=== PATIENT | male | born 1960 | race African-American/Black ===

== ENCOUNTER 2020-10-15 10:42 | Inpatient (IN) | payer MEDICARE, OTHER ==
[~2020-10-15] VITALS: Ht 170.2 cm; Wt 96.2 kg
[2020-10-15] MEDS ORDERED: SODIUM CHLORIDE 0.9% 1000ML 1,000 ML IV STA (10:48)
[2020-10-15] MEDS ORDERED: ACETAMINOPHEN 325 MG TAB PO ONE (11:00)
[2020-10-15 11:10] LABS: BASOPHILS # (AUTO) 0.1 (0.0-0.1); BASOPHILS % 0.4 % (0.0-1.0); EOSINOPHILS # (AUTO) 0.1 (0.0-0.4); EOSINOPHILS % 0.3 % (0.0-6.0); HEMATOCRIT 22.5 % (38.2-49.6); LYMPHOCYTES # (AUTO) 0.9 (1.0-3.2); MEAN CORPUSCULAR HEMOGLOBIN 25.1 pg (28-32); MEAN CORPUSCULAR HGB CONC 29.8 g/dL (31-35); MEAN CORPUSCULAR VOLUME 84.3 fL (81-99); MONOCYTES # (AUTO) 1.7 (0.2-0.8); MONOCYTES % 7.9 % (4.4-11.3); NEUTROPHILS # (AUTO) 18.7 (2.1-6.9); NEUTROPHILS % 86.6 % (38.7-80.0); PLATELET COUNT 471 x10e3/uL (140-360); RED BLOOD COUNT 2.67 x10e6/uL (4.3-5.7); RED CELL DISTRIBUTION WIDTH 19.6 % (11.7-14.4)
[2020-10-15 11:13] LABS: HEMOGLOBIN 6.7 g/dL (14.0-18.0)
[2020-10-15] MEDS ORDERED: SODIUM CHLORIDE 0.9% 250ML 250 ML IV ONE (11:15)
[2020-10-15 11:25] LABS: ALANINE AMINOTRANSFERASE 175 IU/L (0-55); ALBUMIN 1.8 g/dL (3.5-5.0); ALBUMIN/GLOBULIN RATIO 0.4 (0.8-2.0); ALKALINE PHOSPHATASE 280 IU/L (40-150); ANION GAP 13.3 mmol/L (8-16); BLOOD UREA NITROGEN 18 mg/dL (7-26); BUN/CREATININE RATIO 22 (6-25); CALCIUM 8.2 mg/dL (8.4-10.2); CARBON DIOXIDE 23 mmol/L (22-29); CHLORIDE 105 mmol/L (98-107); CREATININE, SERUM 0.82 mg/dL (0.72-1.25); EST GLOMERULAR FILTRATION RATE > 60 ML/MIN (60-); GLUCOSE 194 mg/dL (74-118); POTASSIUM 4.3 mmol/L (3.5-5.1); SODIUM 137 mmol/L (136-145)
[2020-10-15] MEDS ORDERED: MORPHINE SULFATE INJ 2 MG/ML SYR IV PRN (11:45)
[2020-10-15] MEDS: PIPER-TAZ 3.375 GM 50 ML IV SCH ×3 (12:02→18:49)
[2020-10-15 12:25] LABS: CREATINE KINASE 224 IU/L (30-200)
[2020-10-15 13:30] VITALS: BP_SYST 113; BP_SYST 114; BP_DIAS 64; BP_DIAS 76
[2020-10-15] MEDS ORDERED: CETIRIZINE HCL5 MG PO (13:32)
[2020-10-15] MEDS ORDERED: AMLODIPINE BESYL5 MG PO (13:32)
[2020-10-15] MEDS ORDERED: SENNA LAX8.6 MG PO (13:32)
[2020-10-15] MEDS ORDERED: PERCOCET 10-321 EACH PO (13:32)
[2020-10-15] MEDS ORDERED: NORCO 10-325 T1 EACH PO (13:32)
[2020-10-15] MEDS ORDERED: BACLOFEN10 MG PO (13:32)
[2020-10-15] MEDS ORDERED: ZINC SULFATE220 MG PO (13:32)
[2020-10-15] MEDS ORDERED: GABAPENTIN300 MG PO (13:32)
[2020-10-15] MEDS ORDERED: DOCUSATE SODIU100 MG PO (13:32)
[2020-10-15] MEDS ORDERED: ALLOPURINOL300 MG PO (13:32)
[2020-10-15 13:37] VITALS: BP 118/63
[2020-10-15] MEDS ORDERED: DEXTROSE 50% SYRINGE 50 ML IV PRN (13:45)
[2020-10-15] MEDS: SODIUM CHLORIDE 0.9% 1000ML 1,000 ML IV SCH ×2 (15:15→19:45)
[2020-10-15 16:03] VITALS: BP 98/61
[2020-10-15] MEDS ORDERED: PNEUMOCOCCAL VACCINE POLYVALENT 23 MCG/0.5 ML VIAL IM SCH (16:30)
[2020-10-15] MEDS: INSULIN REGULAR, HUMAN 100 UNIT/1 ML 3ML VIAL SQ SCH ×2 (16:30→21:00)
[2020-10-15] MEDS ORDERED: IOPAMIDOL 370 MG/ML 200 ML INFUS..BTL INJ ONE (18:03)
[2020-10-15] MEDS ORDERED: SODIUM CHLORIDE 0.9% 50ML 50 ML ONE (18:03)
[2020-10-15] MEDS: ONDANSETRON HCL INJ 2MG/ML 2ML 2 MG/ML VIAL IV PRN (18:25)
[2020-10-15] MEDS: MORPHINE SULFATE INJ 4 MG/ML INJ 1ML IV PRN (18:25)
[2020-10-15 19:30] VITALS: BP 121/60
[2020-10-15] MEDS ORDERED: SODIUM CHLORIDE 0.9% 250ML 250 ML ONE (20:47)
[2020-10-15 21:45] VITALS: BP 121/60
[2020-10-16] VITALS (8 sets, daily range): BP systolic 102–121; BP diastolic 53–67
[2020-10-16] MEDS: PIPER-TAZ 3.375 GM 50 ML IV SCH ×4 (01:13→17:03)
[2020-10-16] MEDS: SODIUM CHLORIDE 0.9% 1000ML 1,000 ML IV SCH ×3 (03:45→21:18)
[2020-10-16 07:17] LABS: BASOPHILS # (AUTO) 0.1 (0.0-0.1); BASOPHILS % 0.4 % (0.0-1.0); EOSINOPHILS # (AUTO) 0.1 (0.0-0.4); HEMATOCRIT 25.8 % (38.2-49.6); HEMOGLOBIN 7.8 g/dL (14.0-18.0); LYMPHOCYTES # (AUTO) 0.9 (1.0-3.2); LYMPHOCYTES % 7.5 % (18.0-39.1); MEAN CORPUSCULAR HEMOGLOBIN 25.2 pg (28-32); MEAN CORPUSCULAR HGB CONC 30.2 g/dL (31-35); MEAN CORPUSCULAR VOLUME 83.5 fL (81-99); MONOCYTES % 8.7 % (4.4-11.3); NEUTROPHILS # (AUTO) 9.6 (2.1-6.9); PLATELET COUNT 386 x10e3/uL (140-360); RED BLOOD COUNT 3.09 x10e6/uL (4.3-5.7); RED CELL DISTRIBUTION WIDTH 18.7 % (11.7-14.4)
[2020-10-16] MEDS: INSULIN REGULAR, HUMAN 100 UNIT/1 ML 3ML VIAL SQ SCH ×3 (07:30→16:30)
[2020-10-16 07:43] LABS: ALANINE AMINOTRANSFERASE 142 IU/L (0-55); ALBUMIN 1.7 g/dL (3.5-5.0); ALBUMIN/GLOBULIN RATIO 0.4 (0.8-2.0); ALKALINE PHOSPHATASE 237 IU/L (40-150); ANION GAP 13.9 mmol/L (8-16); BLOOD UREA NITROGEN 15 mg/dL (7-26); BUN/CREATININE RATIO 21 (6-25); CALCIUM 7.8 mg/dL (8.4-10.2); CARBON DIOXIDE 22 mmol/L (22-29); CHLORIDE 108 mmol/L (98-107); CREATININE, SERUM 0.73 mg/dL (0.72-1.25); EST GLOMERULAR FILTRATION RATE > 60 ML/MIN (60-); GLUCOSE 85 mg/dL (74-118); POTASSIUM 3.9 mmol/L (3.5-5.1); SODIUM 140 mmol/L (136-145)
[2020-10-16 07:48] LABS: CALCIUM IONIZED 1.2 mmol/L (1.09-1.30)
[2020-10-16 07:50] LABS: CREATINE KINASE MB 1.2 ng/mL (0-5.0)
[2020-10-16 07:59] LABS: MAGNESIUM 1.8 MG/DL (1.3-2.1)
[2020-10-16] MEDS: POLYETHYLENE GLYCOL 3350 17 GM PACK PO SCH (08:37)
[2020-10-16] MEDS: MORPHINE SULFATE INJ 4 MG/ML INJ 1ML IV PRN (08:37)
[2020-10-16] MEDS: DOCUSATE SODIUM 100 MG CAP PO SCH (08:37)
[2020-10-16] MEDS: ONDANSETRON HCL INJ 2MG/ML 2ML 2 MG/ML VIAL IV PRN (08:37)
[2020-10-16] MEDS ORDERED: MAGNESIUM OXIDE 400 MG TAB PO ONE (10:00)
[2020-10-16 12:31] LABS: CREATINE KINASE 153 IU/L (30-200)
[2020-10-17] VITALS (7 sets, daily range): BP systolic 117–140; BP diastolic 61–84
[2020-10-17] MEDS: MORPHINE SULFATE INJ 4 MG/ML INJ 1ML IV PRN ×2 (00:24→09:45)
[2020-10-17] MEDS: PIPER-TAZ 3.375 GM 50 ML IV SCH ×5 (00:24→23:53)
[2020-10-17] MEDS: INSULIN REGULAR, HUMAN 100 UNIT/1 ML 3ML VIAL SQ SCH ×5 (00:58→20:47)
[2020-10-17 06:00] LABS: CALCIUM IONIZED 1.2 mmol/L (1.09-1.30)
[2020-10-17 06:02] LABS: BASOPHILS # (AUTO) 0.1 (0.0-0.1); BASOPHILS % 0.5 % (0.0-1.0); EOSINOPHILS # (AUTO) 0.2 (0.0-0.4); EOSINOPHILS % 1.6 % (0.0-6.0); HEMATOCRIT 24.9 % (38.2-49.6); HEMOGLOBIN 7.7 g/dL (14.0-18.0); LYMPHOCYTES # (AUTO) 0.9 (1.0-3.2); LYMPHOCYTES % 8.8 % (18.0-39.1); MEAN CORPUSCULAR HEMOGLOBIN 25.9 pg (28-32); MEAN CORPUSCULAR HGB CONC 30.9 g/dL (31-35); MEAN CORPUSCULAR VOLUME 83.8 fL (81-99); MONOCYTES # (AUTO) 0.7 (0.2-0.8); MONOCYTES % 7.1 % (4.4-11.3); NEUTROPHILS # (AUTO) 8.2 (2.1-6.9); NEUTROPHILS % 81.4 % (38.7-80.0); PLATELET COUNT 450 x10e3/uL (140-360); RED BLOOD COUNT 2.97 x10e6/uL (4.3-5.7); RED CELL DISTRIBUTION WIDTH 18.4 % (11.7-14.4)
[2020-10-17 06:28] LABS: ALANINE AMINOTRANSFERASE 101 IU/L (0-55); ALBUMIN 1.7 g/dL (3.5-5.0); ALBUMIN/GLOBULIN RATIO 0.4 (0.8-2.0); ALKALINE PHOSPHATASE 236 IU/L (40-150); ANION GAP 12.8 mmol/L (8-16); BLOOD UREA NITROGEN 11 mg/dL (7-26); BUN/CREATININE RATIO 14 (6-25); CALCIUM 7.9 mg/dL (8.4-10.2); CARBON DIOXIDE 23 mmol/L (22-29); CHLORIDE 108 mmol/L (98-107); CREATININE, SERUM 0.76 mg/dL (0.72-1.25); EST GLOMERULAR FILTRATION RATE > 60 ML/MIN (60-); GLUCOSE 81 mg/dL (74-118); MAGNESIUM 1.9 MG/DL (1.3-2.1); POTASSIUM 3.8 mmol/L (3.5-5.1); SODIUM 140 mmol/L (136-145)
[2020-10-17] MEDS: POLYETHYLENE GLYCOL 3350 17 GM PACK PO SCH (09:00)
[2020-10-17] MEDS: DOCUSATE SODIUM 100 MG CAP PO SCH (09:30)
[2020-10-17] MEDS: ONDANSETRON HCL INJ 2MG/ML 2ML 2 MG/ML VIAL IV PRN (09:45)
[2020-10-17] MEDS: SODIUM CHLORIDE 0.9% 1000ML 1,000 ML IV SCH ×2 (10:13→23:53)
[2020-10-18] VITALS (7 sets, daily range): BP systolic 117–141; BP diastolic 66–83
[2020-10-18 05:02] LABS: CLARITY,URINE CLEAR (CLEAR); COLOR,URINE YELLOW (YELLOW)
[2020-10-18 05:03] LABS: BACTERIA,URINE MODERATE /HPF; EPITHELIAL CELLS,URINE FEW /LPF; KETONES,URINE NEGATIVE (NEGATIVE); LEUKOCYTE ESTERASE ,URINE SMALL (NEGATIVE); NITRITE,URINE NEGATIVE (NEGATIVE); PROTEIN,URINE DIPSTICK NEGATIVE (NEGATIVE); RBC,URINE >50 /HPF (0-5); URINE UROBILINOGEN 0.2 mg/dL (0.2 - 1); WBC,URINE (MAN) >50 /HPF (0-5)
[2020-10-18] MEDS: PIPER-TAZ 3.375 GM 50 ML IV SCH ×3 (06:00→19:00)
[2020-10-18 06:48] LABS: BASOPHILS # (AUTO) 0.1 (0.0-0.1); BASOPHILS % 0.5 % (0.0-1.0); EOSINOPHILS # (AUTO) 0.1 (0.0-0.4); EOSINOPHILS % 0.7 % (0.0-6.0); HEMOGLOBIN 8.5 g/dL (14.0-18.0); LYMPHOCYTES # (AUTO) 0.6 (1.0-3.2); LYMPHOCYTES % 6.8 % (18.0-39.1); MEAN CORPUSCULAR HEMOGLOBIN 25.4 pg (28-32); MEAN CORPUSCULAR HGB CONC 30.4 g/dL (31-35); MEAN CORPUSCULAR VOLUME 83.6 fL (81-99); MONOCYTES # (AUTO) 0.6 (0.2-0.8); MONOCYTES % 6.5 % (4.4-11.3); NEUTROPHILS % 85.1 % (38.7-80.0); PLATELET COUNT 476 x10e3/uL (140-360); RED BLOOD COUNT 3.35 x10e6/uL (4.3-5.7); RED CELL DISTRIBUTION WIDTH 17.8 % (11.7-14.4)
[2020-10-18 06:50] LABS: CALCIUM IONIZED 1.2 mmol/L (1.09-1.30)
[2020-10-18] MEDS: INSULIN REGULAR, HUMAN 100 UNIT/1 ML 3ML VIAL SQ SCH ×4 (07:30→20:50)
[2020-10-18 07:37] LABS: ALANINE AMINOTRANSFERASE 82 IU/L (0-55); ALBUMIN/GLOBULIN RATIO 0.5 (0.8-2.0); ALKALINE PHOSPHATASE 229 IU/L (40-150); ANION GAP 12.7 mmol/L (8-16); BLOOD UREA NITROGEN 8 mg/dL (7-26); BUN/CREATININE RATIO 11 (6-25); CALCIUM 8.2 mg/dL (8.4-10.2); CARBON DIOXIDE 22 mmol/L (22-29); CHLORIDE 106 mmol/L (98-107); EST GLOMERULAR FILTRATION RATE > 60 ML/MIN (60-); GLUCOSE 78 mg/dL (74-118); MAGNESIUM 1.9 MG/DL (1.3-2.1); POTASSIUM 3.7 mmol/L (3.5-5.1); SODIUM 137 mmol/L (136-145)
[2020-10-18] MEDS: POLYETHYLENE GLYCOL 3350 17 GM PACK PO SCH (10:02)
[2020-10-18] MEDS: DOCUSATE SODIUM 100 MG CAP PO SCH (10:02)
[2020-10-18] MEDS ORDERED: DOCUSATE SODIUM 100 MG CAP PO PRN (21:15)
[2020-10-18] MEDS ORDERED: POLYETHYLENE GLYCOL 3350 17 GM PACK PO PRN (21:15)
[2020-10-18] MEDS: SODIUM CHLORIDE 0.9% 1000ML 1,000 ML IV SCH (21:57)
[2020-10-18] MEDS ORDERED: GABAPENTIN 300 MG CAP PO SCH (22:00)
[2020-10-18] MEDS: BACLOFEN 10 MG TAB PO SCH (22:08)
[2020-10-18] MEDS: GABAPENTIN 300 MG CAP PO SCH ×2 (22:08→22:09)
[2020-10-19] VITALS (9 sets, daily range): BP systolic 95–118; BP diastolic 58–83
[2020-10-19] MEDS: PIPER-TAZ 3.375 GM 50 ML IV SCH ×5 (01:04→23:18)
[2020-10-19] MEDS: GABAPENTIN 300 MG CAP PO SCH ×3 (05:14→21:30)
[2020-10-19 06:24] LABS: BASOPHILS % 0.2 % (0.0-1.0); EOSINOPHILS # (AUTO) 0.1 (0.0-0.4); HEMATOCRIT 26.9 % (38.2-49.6); HEMOGLOBIN 8.3 g/dL (14.0-18.0); LYMPHOCYTES # (AUTO) 0.9 (1.0-3.2); LYMPHOCYTES % 9.7 % (18.0-39.1); MEAN CORPUSCULAR HEMOGLOBIN 25.9 pg (28-32); MEAN CORPUSCULAR HGB CONC 30.9 g/dL (31-35); MEAN CORPUSCULAR VOLUME 83.8 fL (81-99); MONOCYTES # (AUTO) 0.7 (0.2-0.8); MONOCYTES % 7.6 % (4.4-11.3); NEUTROPHILS # (AUTO) 7.3 (2.1-6.9); NEUTROPHILS % 80.9 % (38.7-80.0); PLATELET COUNT 522 x10e3/uL (140-360); RED BLOOD COUNT 3.21 x10e6/uL (4.3-5.7); RED CELL DISTRIBUTION WIDTH 17.8 % (11.7-14.4)
[2020-10-19 06:41] LABS: CALCIUM IONIZED 1.2 mmol/L (1.09-1.30)
[2020-10-19 06:44] LABS: ALANINE AMINOTRANSFERASE 54 IU/L (0-55); ALBUMIN 1.9 g/dL (3.5-5.0); ALBUMIN/GLOBULIN RATIO 0.5 (0.8-2.0); ALKALINE PHOSPHATASE 173 IU/L (40-150); ANION GAP 12.4 mmol/L (8-16); BLOOD UREA NITROGEN 8 mg/dL (7-26); BUN/CREATININE RATIO 11 (6-25); CALCIUM 7.7 mg/dL (8.4-10.2); CARBON DIOXIDE 23 mmol/L (22-29); CHLORIDE 108 mmol/L (98-107); CREATININE, SERUM 0.72 mg/dL (0.72-1.25); EST GLOMERULAR FILTRATION RATE > 60 ML/MIN (60-); GLUCOSE 90 mg/dL (74-118); MAGNESIUM 1.9 MG/DL (1.3-2.1); POTASSIUM 3.4 mmol/L (3.5-5.1); SODIUM 140 mmol/L (136-145)
[2020-10-19] MEDS: INSULIN REGULAR, HUMAN 100 UNIT/1 ML 3ML VIAL SQ SCH ×4 (07:30→20:11)
[2020-10-19] MEDS ORDERED: BACLOFEN 10 MG TAB PO SCH (09:00)
[2020-10-19] MEDS: BACLOFEN 10 MG TAB PO SCH ×3 (09:32→20:17)
[2020-10-19] MEDS ORDERED: POTASSIUM CHLORIDE 20 MEQ TAB CR PO ONE (09:38)
[2020-10-19] MEDS ORDERED: CALCIUM GLUCONATE 10% INJ 4.65 MEQ in SODIUM CHLORIDE 0.9% 50ML 50 ML IV ONE (11:00)
[2020-10-19] MEDS: SODIUM CHLORIDE 0.9% 1000ML 1,000 ML IV SCH (11:38)
[2020-10-20] VITALS (8 sets, daily range): BP systolic 94–111; BP diastolic 52–67
[2020-10-20] MEDS: SODIUM CHLORIDE 0.9% 1000ML 1,000 ML IV SCH ×2 (04:15→13:15)
[2020-10-20] MEDS: ONDANSETRON HCL INJ 2MG/ML 2ML 2 MG/ML VIAL IV PRN (04:25)
[2020-10-20] MEDS: MORPHINE SULFATE INJ 4 MG/ML INJ 1ML IV PRN ×2 (04:25→22:32)
[2020-10-20] MEDS: PIPER-TAZ 3.375 GM 50 ML IV SCH ×3 (05:01→18:03)
[2020-10-20] MEDS: GABAPENTIN 300 MG CAP PO SCH ×3 (05:02→22:31)
[2020-10-20 07:15] LABS: BASOPHILS % 0.4 % (0.0-1.0); EOSINOPHILS # (AUTO) 0.2 (0.0-0.4); EOSINOPHILS % 2.5 % (0.0-6.0); HEMATOCRIT 24.7 % (38.2-49.6); HEMOGLOBIN 7.3 g/dL (14.0-18.0); LYMPHOCYTES % 13.6 % (18.0-39.1); MEAN CORPUSCULAR HEMOGLOBIN 25.6 pg (28-32); MEAN CORPUSCULAR HGB CONC 29.6 g/dL (31-35); MEAN CORPUSCULAR VOLUME 86.7 fL (81-99); MONOCYTES # (AUTO) 0.7 (0.2-0.8); MONOCYTES % 9.1 % (4.4-11.3); NEUTROPHILS # (AUTO) 5.4 (2.1-6.9); PLATELET COUNT 482 x10e3/uL (140-360); RED BLOOD COUNT 2.85 x10e6/uL (4.3-5.7); RED CELL DISTRIBUTION WIDTH 18.3 % (11.7-14.4)
[2020-10-20 07:27] LABS: ALANINE AMINOTRANSFERASE 38 IU/L (0-55); ALBUMIN 1.9 g/dL (3.5-5.0); ALBUMIN/GLOBULIN RATIO 0.5 (0.8-2.0); ALKALINE PHOSPHATASE 122 IU/L (40-150); ANION GAP 9.7 mmol/L (8-16); BLOOD UREA NITROGEN 7 mg/dL (7-26); BUN/CREATININE RATIO 10 (6-25); CALCIUM 7.3 mg/dL (8.4-10.2); CARBON DIOXIDE 22 mmol/L (22-29); CHLORIDE 112 mmol/L (98-107); CREATININE, SERUM 0.68 mg/dL (0.72-1.25); EST GLOMERULAR FILTRATION RATE > 60 ML/MIN (60-); GLUCOSE 89 mg/dL (74-118); MAGNESIUM 1.9 MG/DL (1.3-2.1); POTASSIUM 3.7 mmol/L (3.5-5.1); SODIUM 140 mmol/L (136-145)
[2020-10-20] MEDS: INSULIN REGULAR, HUMAN 100 UNIT/1 ML 3ML VIAL SQ SCH ×4 (07:30→21:00)
[2020-10-20 07:35] LABS: CALCIUM IONIZED 1.1 mmol/L (1.09-1.30)
[2020-10-20 08:32] LABS: HYPOCHROMASIA SLIGHT
[2020-10-20 08:33] LABS: ANISOCYTOSIS SLIGHT; PLATELET ESTIMATE ADEQUATE; PLATELET MORPHOLOGY COMMENT NORMAL; RBC MORPHOLOGY COMMENT NORMAL
[2020-10-20] MEDS: BACLOFEN 10 MG TAB PO SCH ×3 (09:00→21:59)
[2020-10-20] MEDS ORDERED: SEVOFLURANE INHAL SOLN 250 ML PEN BTL ONE (12:24)
[2020-10-20] MEDS ORDERED: PROPOFOL IV EMULSION 10 MG/ML 20 ML VIAL ONE (12:24)
[2020-10-20] MEDS ORDERED: ONDANSETRON HCL INJ 2MG/ML 2ML 2 MG/ML VIAL ONE (12:24)
[2020-10-20] MEDS ORDERED: LIDOCAINE HCL 2% LOCAL INJ 5 ML SDV VIAL INJ ONE (12:24)
[2020-10-20] MEDS ORDERED: ONDANSETRON HCL 4 MG ORAL DISINTEGRATING TAB PO PRN (15:00)
[2020-10-21] VITALS (8 sets, daily range): BP systolic 114–155; BP diastolic 54–76
[2020-10-21] MEDS: PIPER-TAZ 3.375 GM 50 ML IV SCH ×4 (00:45→17:14)
[2020-10-21] MEDS: GABAPENTIN 300 MG CAP PO SCH ×3 (06:00→21:49)
[2020-10-21] MEDS: SODIUM CHLORIDE 0.9% 1000ML 1,000 ML IV SCH ×2 (06:25→15:00)
[2020-10-21 06:26] LABS: BASOPHILS # (AUTO) 0.1 (0.0-0.1); BASOPHILS % 0.7 % (0.0-1.0); EOSINOPHILS # (AUTO) 0.2 (0.0-0.4); EOSINOPHILS % 3.5 % (0.0-6.0); HEMATOCRIT 24.8 % (38.2-49.6); HEMOGLOBIN 7.5 g/dL (14.0-18.0); LYMPHOCYTES # (AUTO) 1.1 (1.0-3.2); LYMPHOCYTES % 15.6 % (18.0-39.1); MEAN CORPUSCULAR HEMOGLOBIN 26.1 pg (28-32); MEAN CORPUSCULAR HGB CONC 30.2 g/dL (31-35); MEAN CORPUSCULAR VOLUME 86.4 fL (81-99); MONOCYTES # (AUTO) 0.5 (0.2-0.8); MONOCYTES % 7.6 % (4.4-11.3); NEUTROPHILS # (AUTO) 4.9 (2.1-6.9); PLATELET COUNT 504 x10e3/uL (140-360); RED BLOOD COUNT 2.87 x10e6/uL (4.3-5.7); RED CELL DISTRIBUTION WIDTH 18.4 % (11.7-14.4)
[2020-10-21 06:33] LABS: CALCIUM IONIZED 1.1 mmol/L (1.09-1.30)
[2020-10-21 06:43] LABS: ALANINE AMINOTRANSFERASE 32 IU/L (0-55); ALBUMIN/GLOBULIN RATIO 0.5 (0.8-2.0); ALKALINE PHOSPHATASE 118 IU/L (40-150); ANION GAP 10.9 mmol/L (8-16); BLOOD UREA NITROGEN 9 mg/dL (7-26); BUN/CREATININE RATIO 11 (6-25); CALCIUM 7.8 mg/dL (8.4-10.2); CARBON DIOXIDE 23 mmol/L (22-29); CHLORIDE 112 mmol/L (98-107); CREATININE, SERUM 0.81 mg/dL (0.72-1.25); EST GLOMERULAR FILTRATION RATE > 60 ML/MIN (60-); GLUCOSE 76 mg/dL (74-118); MAGNESIUM 1.9 MG/DL (1.3-2.1); POTASSIUM 3.9 mmol/L (3.5-5.1); SODIUM 142 mmol/L (136-145)
[2020-10-21] MEDS: INSULIN REGULAR, HUMAN 100 UNIT/1 ML 3ML VIAL SQ SCH ×4 (07:30→21:00)
[2020-10-21] MEDS: BACLOFEN 10 MG TAB PO SCH ×3 (10:17→21:00)
[2020-10-21] MEDS: MORPHINE SULFATE INJ 4 MG/ML INJ 1ML IV PRN (18:30)
[2020-10-22] VITALS: BP 132/71
[2020-10-22] MEDS: SODIUM CHLORIDE 0.9% 1000ML 1,000 ML IV SCH (02:32)
[2020-10-22 04:00] VITALS: BP 133/61
[2020-10-22] MEDS: GABAPENTIN 300 MG CAP PO SCH (05:30)
[2020-10-22] MEDS: PIPER-TAZ 3.375 GM 50 ML IV SCH ×3 (05:30→12:49)
[2020-10-22] MEDS: INSULIN REGULAR, HUMAN 100 UNIT/1 ML 3ML VIAL SQ SCH ×2 (07:30→11:30)
[2020-10-22 07:55] VITALS: BP 125/52
[2020-10-22 08:00] VITALS: BP 125/52
[2020-10-22] MEDS: BACLOFEN 10 MG TAB PO SCH (09:21)
[2020-10-22 12:00] VITALS: BP 136/64
[2020-12-24] MEDS ORDERED: DEXTROMETHORPHAN PO (12:39)
[2020-12-24] MEDS ORDERED: ATIVAN1 MG PO (12:39)
[2020-12-24] MEDS ORDERED: VITAMIN D3250 MC1 PO (12:39)
[2020-12-24] MEDS ORDERED: MULTIVITAMINS1 EAC8 PO (12:39)
[2020-12-24] MEDS ORDERED: GUAIFENESIN PO (12:39)
[2020-12-24] MEDS ORDERED: VITAMIN D3100 GM (12:39)
[2020-12-24] MEDS ORDERED: HUMULIN N100 UNITS/ SC (12:39)
[2020-12-24] MEDS ORDERED: ACETAMINOPHEN325 M1 PO (12:39)
[2020-12-24] MEDS ORDERED: PROMOD946 ML PO (12:39)
[2020-12-24] MEDS ORDERED: HUMULIN R100 UNIT/2 INJ (12:39)
[2020-12-24] MEDS ORDERED: ARTIFICIAL TEAR15 ML OU (12:39)
== END 2020-10-22 15:34 | DRG 853 ==
LOC: ER 10:45 → ERHOLD 10:51 → MED/SURG3 13:19
PROVIDERS: ADMIT Internal Medicine; ATTEND Internal Medicine
PROC: 30233N1 Transfusion of Nonautologous Red Blood Cells into Peripheral Vein, Percutaneous Approach (ICD-10-PCS; 2020-10-15)
PROC: 0JD70ZZ Extraction of Back Subcutaneous Tissue and Fascia, Open Approach (ICD-10-PCS; principal; 2020-10-20 14:30)
DX: A41.9 Sepsis, unspecified organism (principal); L89.613 Pressure ulcer of right heel, stage 3; L89.154 Pressure ulcer of sacral region, stage 4; G82.52 Quadriplegia, C1-C4 incomplete; D62 Acute posthemorrhagic anemia; N13.2 Hydronephrosis with renal and ureteral calculous obstruction; N39.0 Urinary tract infection, site not specified; K52.1 Toxic gastroenteritis and colitis; M86.8X8 Other osteomyelitis, other site; Z66 Do not resuscitate; E66.9 Obesity, unspecified; Z20.828 Contact with and (suspected) exposure to other viral communicable diseases; E11.51 Type 2 diabetes mellitus with diabetic peripheral angiopathy without gangrene; E11.22 Type 2 diabetes mellitus with diabetic chronic kidney disease; I12.9 Hypertensive chronic kidney disease with stage 1 through stage 4 chronic kidney disease, or unspecified chronic kidney disease; N18.9 Chronic kidney disease, unspecified; Z74.01 Bed confinement status; Z93.3 Colostomy status; E78.5 Hyperlipidemia, unspecified; Z93.6 Other artificial openings of urinary tract status; N31.9 Neuromuscular dysfunction of bladder, unspecified; Q54.0 Hypospadias, balanic; N28.1 Cyst of kidney, acquired; E83.51 Hypocalcemia; T47.4X5A Adverse effect of other laxatives, initial encounter; Z68.33 Body mass index [BMI] 33.0-33.9, adult; Z79.4 Long term (current) use of insulin; E11.69 Type 2 diabetes mellitus with other specified complication
CPT/HCPCS: 36415; 71045; 74018; 74177; 80053; 81001; 82270; 82550; 82553; 82948; 83605; 83735; 84100; 84484; 85025; 86850; 86900; 86920; 87040; 87086; 93005; 99251; 99284; J0610; J1817; J2001; J2270; J2405; J2543; J7030; J7050; J7799; P9016; Q9967; U0002

== ENCOUNTER 2020-12-18 12:19 | Emergency (ER) | payer MEDICARE, OTHER ==
[~2020-12-18] VITALS: Ht 165.1 cm; Wt 90.7 kg
[~2020-12-18 12:19] MED LIST: ALLOPURINOL300 MG PO; AMLODIPINE BESYL5 MG PO; BACLOFEN10 MG PO; CETIRIZINE HCL5 MG PO; DOCUSATE SODIU100 MG PO; GABAPENTIN300 MG PO; NORCO 10-325 T1 EACH PO; PERCOCET 10-321 EACH PO; SENNA LAX8.6 MG PO; ZINC SULFATE220 MG PO
[2020-12-18 13:38] LABS: BASOPHILS % 0.4 % (0.0-1.0); EOSINOPHILS # (AUTO) 0.2 (0.0-0.4); EOSINOPHILS % 2.5 % (0.0-6.0); HEMATOCRIT 27.9 % (38.2-49.6); HEMOGLOBIN 8.3 g/dL (14.0-18.0); LYMPHOCYTES # (AUTO) 1.1 (1.0-3.2); LYMPHOCYTES % 13.8 % (18.0-39.1); MEAN CORPUSCULAR HEMOGLOBIN 26.2 pg (28-32); MEAN CORPUSCULAR HGB CONC 29.7 g/dL (31-35); MONOCYTES # (AUTO) 0.8 (0.2-0.8); MONOCYTES % 10.8 % (4.4-11.3); NEUTROPHILS # (AUTO) 5.5 (2.1-6.9); NEUTROPHILS % 72.4 % (38.7-80.0); PLATELET COUNT 390 x10e3/uL (140-360); RED BLOOD COUNT 3.17 x10e6/uL (4.3-5.7); RED CELL DISTRIBUTION WIDTH 18.5 % (11.7-14.4)
[2020-12-18] MEDS ORDERED: LIDOCAINE HCL 1% LOCAL INJ 20 ML VIAL ONE (13:38)
[2020-12-18] MEDS ORDERED: SODIUM CHLORIDE 0.9% 250ML 250 ML ONE (13:38)
[2020-12-18] MEDS ORDERED: IOPAMIDOL 300MG/ML 100 ML INFUS..BTL IV ONE (13:39)
[2020-12-18 13:50] LABS: INR 1.26; PROTHROMBIN TIME 16.6 seconds (11.9-14.5)
[2020-12-18 13:56] LABS: CLARITY,URINE TURBID (CLEAR); COLOR,URINE BROWN (YELLOW); LEUKOCYTE ESTERASE ,URINE LARGE (NEGATIVE); NITRITE,URINE POSITIVE (NEGATIVE); PROTEIN,URINE DIPSTICK >=300 (NEGATIVE)
[2020-12-18 13:57] LABS: ALANINE AMINOTRANSFERASE 16 IU/L (0-55); ALBUMIN 2.9 g/dL (3.5-5.0); ALBUMIN/GLOBULIN RATIO 0.7 (0.8-2.0); ALKALINE PHOSPHATASE 64 IU/L (40-150); ANION GAP 14.8 mmol/L (8-16); BLOOD UREA NITROGEN 21 mg/dL (7-26); BUN/CREATININE RATIO 22 (6-25); CALCIUM 8.3 mg/dL (8.4-10.2); CARBON DIOXIDE 25 mmol/L (22-29); CHLORIDE 106 mmol/L (98-107); CREATININE, SERUM 0.97 mg/dL (0.72-1.25); EST GLOMERULAR FILTRATION RATE > 60 ML/MIN (60-); GLUCOSE 160 mg/dL (74-118); KETONES,URINE NEGATIVE (NEGATIVE); POTASSIUM 3.8 mmol/L (3.5-5.1); SODIUM 142 mmol/L (136-145); URINE UROBILINOGEN 0.2 mg/dL (0.2 - 1)
[2020-12-18 13:58] LABS: BACTERIA,URINE MANY /HPF
[2020-12-18 13:59] LABS: AMORPHOUS SEDIMENT,URINE MANY (FEW); EPITHELIAL CELLS,URINE FEW /LPF; RBC,URINE 0-5 /HPF (0-5); WBC,URINE (MAN) 0-5 /HPF (0-5)
[2020-12-18 14:02] LABS: CALCIUM OXALATE CRYSTALS,UR MANY (FEW)
[2020-12-18] MEDS ORDERED: FENTANYL CITRATE/PF 100MCG/2 ML INJ ONE (14:15)
[2020-12-18] MEDS ORDERED: CEFAZOLIN SOD 1 GM/NS 50ML 50 ML IV ONE (14:15)
[2020-12-18] MEDS ORDERED: MIDAZOLAM HCL 2 MG/2 ML VIAL ONE (14:15)
== END 2020-12-18 18:08 ==
LOC: ER 12:30
DX: Z43.6 Encounter for attention to other artificial openings of urinary tract (principal); I10 Essential (primary) hypertension; E11.65 Type 2 diabetes mellitus with hyperglycemia; G82.50 Quadriplegia, unspecified; D64.9 Anemia, unspecified; M10.9 Gout, unspecified
CPT/HCPCS: 36415; 50435; 74470; 80053; 81001; 85025; 85610; 87086; 87186; 99283; C1769; J0690; J2001; J2250; J3010; J7050; Q9967; 50387

== ENCOUNTER → 2020-12-25 | Day surgery (SDC) | payer MEDICARE, OTHER ==
[~2020-12-25] MED LIST changes: +ACETAMINOPHEN325 M1 PO; +ARTIFICIAL TEAR15 ML OU; +ATIVAN1 MG PO; +DEXTROMETHORPHAN PO; +FENTANYL CITRATE/PF 100MCG/2 ML INJ ONE; +GUAIFENESIN PO; +HUMULIN N100 UNITS/ SC; +HUMULIN R100 UNIT/2 INJ; +METOCLOPRAMIDE HCL 10 MG/2ML VIAL ONE; +MULTIVITAMINS1 EAC8 PO; +ONDANSETRON HCL INJ 2MG/ML 2ML 2 MG/ML VIAL ONE; +PIPERACILLIN/TAZOBAC 3.375 GM VIAL ONE; +PROMOD946 ML PO; +SODIUM CHLORIDE 0.9% 50ML 50 ML ONE; +VITAMIN D3100 GM; +VITAMIN D3250 MC1 PO
[2020-12-25 12:23] VITALS: BP 119/55
== END | disposition home or self-care (01) ==
LOC: OR 07:21
PROVIDERS: ATTEND Urology
DX: N20.1 Calculus of ureter (principal); Z96.0 Presence of urogenital implants; N39.0 Urinary tract infection, site not specified; N31.9 Neuromuscular dysfunction of bladder, unspecified; Q54.9 Hypospadias, unspecified; E11.9 Type 2 diabetes mellitus without complications; M10.9 Gout, unspecified; D64.9 Anemia, unspecified; I10 Essential (primary) hypertension; G82.50 Quadriplegia, unspecified; Z20.822 Contact with and (suspected) exposure to COVID-19; Z79.4 Long term (current) use of insulin; Z86.16 Personal history of COVID-19
CPT/HCPCS: 36415; 50590; 74018; 82948; J2405; J2543; J2765; J3010; U0002

== ENCOUNTER → 2021-01-08 | Day surgery (SDC) | payer MEDICARE ==
[~2021-01-08] MED LIST changes: +CEFEPIME 1GM/NS 0.9% 50 ML 50 ML IV ONE; -FENTANYL CITRATE/PF 100MCG/2 ML INJ ONE; +LIDOCAINE HCL 2% LOCAL INJ 5 ML SDV VIAL INJ ONE; -METOCLOPRAMIDE HCL 10 MG/2ML VIAL ONE; -ONDANSETRON HCL INJ 2MG/ML 2ML 2 MG/ML VIAL ONE; -PIPERACILLIN/TAZOBAC 3.375 GM VIAL ONE; +PROPOFOL IV EMULSION 10 MG/ML 20 ML VIAL ONE; +SEVOFLURANE INHAL SOLN 250 ML PEN BTL ONE; -SODIUM CHLORIDE 0.9% 50ML 50 ML ONE
[2021-01-08 12:15] VITALS: BP 130/71
== END | disposition home or self-care (01) ==
LOC: OR 06:03
PROVIDERS: ATTEND Urology
DX: N20.0 Calculus of kidney (principal); N31.9 Neuromuscular dysfunction of bladder, unspecified; I10 Essential (primary) hypertension; E11.9 Type 2 diabetes mellitus without complications; Z20.822 Contact with and (suspected) exposure to COVID-19; Z79.4 Long term (current) use of insulin
CPT/HCPCS: 36415; 36556; 50590; 74018; 76937; 77001; 82948; C1769; J0692; J2001; J2704; U0002

== ENCOUNTER 2021-03-14 17:58 | Inpatient (IN) | payer MEDICARE, OTHER ==
[~2021-03-14] VITALS: Ht 172.7 cm; Wt 102.1 kg
[~2021-03-14 17:58] MED LIST changes: -CEFEPIME 1GM/NS 0.9% 50 ML 50 ML IV ONE; -LIDOCAINE HCL 2% LOCAL INJ 5 ML SDV VIAL INJ ONE; -PROPOFOL IV EMULSION 10 MG/ML 20 ML VIAL ONE; -SEVOFLURANE INHAL SOLN 250 ML PEN BTL ONE
[2021-03-14] MEDS ORDERED: ACETAMINOPHEN 325 MG TAB PO ONE (18:15)
[2021-03-14] MEDS ORDERED: SODIUM CHLORIDE 0.9% 1000ML 1,000 ML IV ONE ×2 (18:15→18:30)
[2021-03-14] MEDS ORDERED: CEFEPIME HCL 1 GM VIAL IV ONE (18:15)
[2021-03-14] MEDS ORDERED: CEFEPIME HCL 1GM 1 GM in SODIUM CHLORIDE 0.9% 50ML 50 ML IV ONE (18:15)
[2021-03-14 18:33] LABS: CLARITY,URINE TURBID (CLEAR); COLOR,URINE YELLOW (YELLOW); LEUKOCYTE ESTERASE ,URINE LARGE (NEGATIVE)
[2021-03-14 18:34] LABS: KETONES,URINE NEGATIVE (NEGATIVE); NITRITE,URINE NEGATIVE (NEGATIVE); PROTEIN,URINE DIPSTICK >=300 (NEGATIVE); URINE UROBILINOGEN 0.2 mg/dL (0.2 - 1)
[2021-03-14 18:43] LABS: BASOPHILS % 0.2 % (0.0-1.0); HEMATOCRIT 26.6 % (38.2-49.6); HEMOGLOBIN 7.9 g/dL (14.0-18.0); LYMPHOCYTES # (AUTO) 1.5 (1.0-3.2); LYMPHOCYTES % 8.7 % (18.0-39.1); MEAN CORPUSCULAR HEMOGLOBIN 24.8 pg (28-32); MEAN CORPUSCULAR HGB CONC 29.7 g/dL (31-35); MEAN CORPUSCULAR VOLUME 83.6 fL (81-99); MONOCYTES # (AUTO) 1.2 (0.2-0.8); MONOCYTES % 7.1 % (4.4-11.3); NEUTROPHILS % 83.4 % (38.7-80.0); PLATELET COUNT 697 x10e3/uL (140-360); RED BLOOD COUNT 3.18 x10e6/uL (4.3-5.7); RED CELL DISTRIBUTION WIDTH 18.6 % (11.7-14.4)
[2021-03-14 18:47] LABS: RBC,URINE 0-5 /HPF (0-5)
[2021-03-14 18:48] LABS: BACTERIA,URINE MODERATE /HPF
[2021-03-14 18:56] LABS: ALANINE AMINOTRANSFERASE 88 IU/L (0-55); ALBUMIN 2.7 g/dL (3.5-5.0); ALBUMIN/GLOBULIN RATIO 0.4 (0.8-2.0); ALKALINE PHOSPHATASE 181 IU/L (40-150); BLOOD UREA NITROGEN 26 mg/dL (7-26); BUN/CREATININE RATIO 21 (6-25); CARBON DIOXIDE 21 mmol/L (22-29); CHLORIDE 103 mmol/L (98-107); CREATINE KINASE 78 IU/L (30-200); CREATININE, SERUM 1.22 mg/dL (0.72-1.25); EST GLOMERULAR FILTRATION RATE > 60 ML/MIN (60-); GLUCOSE 122 mg/dL (74-118); SODIUM 137 mmol/L (136-145)
[2021-03-14] MEDS: SODIUM CHLORIDE 0.9% 1000ML 1,000 ML IV SCH (20:47)
[2021-03-14] MEDS ORDERED: ONDANSETRON HCL INJ 2MG/ML 2ML 2 MG/ML VIAL IV PRN (21:15)
[2021-03-14] MEDS ORDERED: DEXTROSE 50% SYRINGE 50 ML IV PRN (21:15)
[2021-03-14 21:29] LABS: CLARITY,URINE CLOUDY (CLEAR); COLOR,URINE YELLOW (YELLOW); KETONES,URINE NEGATIVE (NEGATIVE); LEUKOCYTE ESTERASE ,URINE 2+ (NEGATIVE); NITRITE,URINE POSITIVE (NEGATIVE); PROTEIN,URINE DIPSTICK 2+ (NEGATIVE); URINE UROBILINOGEN 0.2 mg/dL (0.2 - 1)
[2021-03-14 21:34] LABS: AMORPHOUS SEDIMENT,URINE FEW (FEW); BACTERIA,URINE MANY /HPF; EPITHELIAL CELLS,URINE FEW /LPF; RBC,URINE 21-50 /HPF (0-5); RENAL EPITHELIAL CELLS,URINE FEW; TRANSITIONAL EPI CELLS,URINE FEW; WBC,URINE (MAN) >50 /HPF (0-5)
[2021-03-14] MEDS ORDERED: CEFEPIME HCL 1 GM VIAL IV SCH (22:00)
[2021-03-14] MEDS ORDERED: CEFEPIME HCL 1GM 1 GM in SODIUM CHLORIDE 0.9% 50ML 50 ML IV SCH (22:00)
[2021-03-14 23:00] VITALS: BP 125/74
[2021-03-14 23:55] VITALS: BP 85/53
[2021-03-14] MEDS ORDERED: ADMELOG100 UNIT/1 SC (23:55)
[2021-03-14] MEDS ORDERED: COLACE100 MG PO (23:58)
[2021-03-14] MEDS ORDERED: HUMULIN N100 UNITS/ SC (23:58)
[2021-03-15] VITALS (16 sets, daily range): BP systolic 84–136; BP diastolic 52–82
[2021-03-15] MEDS ORDERED: SODIUM CHLORIDE 0.9% 1000ML 1,000 ML ONE (00:43)
[2021-03-15] MEDS ORDERED: HYDROCODONE/APAP 10MG-325MG TAB PO PRN (00:45)
[2021-03-15] MEDS ORDERED: DOCUSATE SODIUM 100 MG CAP PO PRN (00:45)
[2021-03-15] MEDS ORDERED: ACETAMINOPHEN 325 MG TAB PO PRN (00:45)
[2021-03-15] MEDS ORDERED: OXYCODONE/ACETAMINOPHEN 5-325 1 EACH TABLET PO PRN (00:45)
[2021-03-15] MEDS ORDERED: GUAIFENESIN/DEXTROMETHORPHAN LIQD 5 ML UDC NG PRN (00:45)
[2021-03-15] MEDS ORDERED: LORAZEPAM 1 MG TAB PO PRN (00:45)
[2021-03-15] MEDS ORDERED: GABAPENTIN 300 MG CAP PO SCH (02:00)
[2021-03-15] MEDS: CEFEPIME HCL 1GM 1 GM in SODIUM CHLORIDE 0.9% 50ML 50 ML IV SCH ×3 (02:11→19:38)
[2021-03-15] MEDS: SODIUM CHLORIDE 0.9% 1000ML 1,000 ML IV SCH ×3 (02:14→21:19)
[2021-03-15] MEDS: HYDROMORPHONE 1MG/1ML INJ IV PRN ×2 (07:07→11:15)
[2021-03-15] MEDS: INSULIN REGULAR, HUMAN 100 UNIT/1 ML 3ML VIAL SQ SCH ×4 (07:30→21:00)
[2021-03-15] MEDS: NPH, HUMAN INSULIN ISOPHANE 100 UNIT/1 ML 3ML VIAL SQ SCH ×2 (07:30→15:43)
[2021-03-15 08:28] LABS: BASOPHILS % 0.5 % (0.0-1.0); EOSINOPHILS # (AUTO) 0.1 (0.0-0.4); EOSINOPHILS % 0.6 % (0.0-6.0); HEMATOCRIT 26.4 % (38.2-49.6); HEMOGLOBIN 7.6 g/dL (14.0-18.0); LYMPHOCYTES % 11.9 % (18.0-39.1); MEAN CORPUSCULAR HEMOGLOBIN 24.8 pg (28-32); MEAN CORPUSCULAR HGB CONC 28.8 g/dL (31-35); MONOCYTES % 12.3 % (4.4-11.3); NEUTROPHILS # (AUTO) 6.2 (2.1-6.9); NEUTROPHILS % 74.2 % (38.7-80.0); PLATELET COUNT 541 x10e3/uL (140-360); RED BLOOD COUNT 3.07 x10e6/uL (4.3-5.7); RED CELL DISTRIBUTION WIDTH 18.3 % (11.7-14.4)
[2021-03-15 08:39] LABS: INR 1.69; PROTHROMBIN TIME 20.6 seconds (11.9-14.5)
[2021-03-15 08:40] LABS: PARTIAL THROMBOPLASTIN TIME 60.6 seconds (23.8-35.5)
[2021-03-15 08:49] LABS: ALANINE AMINOTRANSFERASE 82 IU/L (0-55); ALBUMIN 2.5 g/dL (3.5-5.0); ALBUMIN/GLOBULIN RATIO 0.4 (0.8-2.0); ALKALINE PHOSPHATASE 157 IU/L (40-150); ANION GAP 16.2 mmol/L (8-16); BLOOD UREA NITROGEN 21 mg/dL (7-26); BUN/CREATININE RATIO 27 (6-25); CALCIUM 8.4 mg/dL (8.4-10.2); CARBON DIOXIDE 18 mmol/L (22-29); CHLORIDE 110 mmol/L (98-107); CREATININE, SERUM 0.79 mg/dL (0.72-1.25); EST GLOMERULAR FILTRATION RATE > 60 ML/MIN (60-); GLUCOSE 89 mg/dL (74-118); POTASSIUM 4.2 mmol/L (3.5-5.1); SODIUM 140 mmol/L (136-145)
[2021-03-15] MEDS: DOCUSATE SODIUM 100 MG CAP PO SCH ×2 (09:45→16:10)
[2021-03-15] MEDS: ARTIFICIAL TEARS (OPTH) 15 ML BTL OU SCH ×3 (09:45→21:19)
[2021-03-15] MEDS: AMLODIPINE BESYLATE 5 MG TAB PO SCH (09:49)
[2021-03-15] MEDS: SENNOSIDES 8.6 MG TAB PO SCH (09:49)
[2021-03-15] MEDS: MULTIVITAMINS/MINERALS TAB PO SCH (09:49)
[2021-03-15] MEDS: ALLOPURINOL 300 MG TAB PO SCH (09:49)
[2021-03-15] MEDS: CHOLECALCIFEROL 1,000 UNIT TAB PO SCH (09:49)
[2021-03-15] MEDS: BACLOFEN 10 MG TAB PO SCH ×3 (09:49→21:16)
[2021-03-15] MEDS: ZINC SULFATE 220 MG CAP PO SCH (09:49)
[2021-03-15] MEDS: GABAPENTIN 300 MG CAP PO SCH ×3 (11:22→22:02)
[2021-03-15] MEDS ORDERED: FENTANYL CITRATE/PF 100MCG/2 ML INJ ONE (12:50)
[2021-03-15] MEDS ORDERED: MIDAZOLAM HCL 2 MG/2 ML VIAL ONE (12:50)
[2021-03-15] MEDS ORDERED: LIDOCAINE HCL 1% LOCAL INJ 20 ML VIAL ONE (13:04)
[2021-03-15] MEDS ORDERED: SODIUM CHLORIDE 0.9% 250ML 250 ML ONE (14:35)
[2021-03-15] MEDS ORDERED: DIATRIZOATE MEGL/DIATRIZOA SOD 30 ML BTL PO ONE (15:11)
[2021-03-16] VITALS (9 sets, daily range): BP systolic 96–132; BP diastolic 46–74
[2021-03-16] MEDS ORDERED: CEFEPIME HCL 1 GM VIAL ONE (03:56)
[2021-03-16] MEDS: CEFEPIME HCL 1GM 1 GM in SODIUM CHLORIDE 0.9% 50ML 50 ML IV SCH ×3 (04:04→19:00)
[2021-03-16] MEDS: SODIUM CHLORIDE 0.9% 1000ML 1,000 ML IV SCH ×3 (04:15→21:19)
[2021-03-16] MEDS: GABAPENTIN 300 MG CAP PO SCH ×3 (05:50→21:52)
[2021-03-16] MEDS: NPH, HUMAN INSULIN ISOPHANE 100 UNIT/1 ML 3ML VIAL SQ SCH ×2 (07:30→16:30)
[2021-03-16] MEDS: INSULIN REGULAR, HUMAN 100 UNIT/1 ML 3ML VIAL SQ SCH ×4 (07:30→21:00)
[2021-03-16] MEDS: DOCUSATE SODIUM 100 MG CAP PO SCH ×2 (09:00→18:25)
[2021-03-16] MEDS: MULTIVITAMINS/MINERALS TAB PO SCH (09:28)
[2021-03-16] MEDS: AMLODIPINE BESYLATE 5 MG TAB PO SCH (09:28)
[2021-03-16] MEDS: BACLOFEN 10 MG TAB PO SCH ×3 (09:28→21:13)
[2021-03-16] MEDS: ALLOPURINOL 300 MG TAB PO SCH (09:28)
[2021-03-16] MEDS: ZINC SULFATE 220 MG CAP PO SCH (09:28)
[2021-03-16] MEDS: CHOLECALCIFEROL 1,000 UNIT TAB PO SCH (09:28)
[2021-03-16] MEDS: SENNOSIDES 8.6 MG TAB PO SCH (09:33)
[2021-03-16] MEDS: ARTIFICIAL TEARS (OPTH) 15 ML BTL OU SCH ×3 (09:42→21:13)
[2021-03-16] MEDS: HYDROMORPHONE 1MG/1ML INJ IV PRN (11:12)
[2021-03-16] MEDS ORDERED: SODIUM CHLORIDE 0.9% 50ML 0 ML ONE (17:02)
[2021-03-16] MEDS ORDERED: IOPAMIDOL 370 MG/ML 200 ML INFUS..BTL INJ ONE (17:03)
[2021-03-17] VITALS: BP 111/63
[2021-03-17 04:00] VITALS: BP 100/59
[2021-03-17] MEDS: SODIUM CHLORIDE 0.9% 1000ML 1,000 ML IV SCH ×2 (04:26→14:05)
[2021-03-17] MEDS: CEFEPIME HCL 1GM 1 GM in SODIUM CHLORIDE 0.9% 50ML 50 ML IV SCH (04:26)
[2021-03-17] MEDS: GABAPENTIN 300 MG CAP PO SCH ×2 (05:50→14:05)
[2021-03-17 07:21] VITALS: BP 121/69
[2021-03-17] MEDS: NPH, HUMAN INSULIN ISOPHANE 100 UNIT/1 ML 3ML VIAL SQ SCH ×2 (07:30→16:30)
[2021-03-17] MEDS: INSULIN REGULAR, HUMAN 100 UNIT/1 ML 3ML VIAL SQ SCH ×3 (07:30→16:30)
[2021-03-17] MEDS: MULTIVITAMINS/MINERALS TAB PO SCH (10:07)
[2021-03-17] MEDS: DOCUSATE SODIUM 100 MG CAP PO SCH ×2 (10:07→17:52)
[2021-03-17] MEDS: CHOLECALCIFEROL 1,000 UNIT TAB PO SCH (10:07)
[2021-03-17] MEDS: BACLOFEN 10 MG TAB PO SCH ×2 (10:07→14:05)
[2021-03-17] MEDS: SENNOSIDES 8.6 MG TAB PO SCH (10:07)
[2021-03-17] MEDS: ALLOPURINOL 300 MG TAB PO SCH (10:07)
[2021-03-17] MEDS: AMLODIPINE BESYLATE 5 MG TAB PO SCH (10:07)
[2021-03-17] MEDS: ARTIFICIAL TEARS (OPTH) 15 ML BTL OU SCH ×2 (10:07→14:05)
[2021-03-17] MEDS: ZINC SULFATE 220 MG CAP PO SCH (10:07)
[2021-03-17 12:00] VITALS: BP 141/56
[2021-03-17] MEDS ORDERED: MEROPENEM 500MG/ NS 50ML 50 ML IV SCH (14:00)
[2021-03-17] MEDS ORDERED: MEROPENEM 1GM 100 ML IV SCH (15:00)
[2021-03-17 15:59] VITALS: BP 103/59
[2021-03-23] MEDS ORDERED: MEROPENEM-500 MG/50 IV (16:32)
[2021-03-23] MEDS ORDERED: ZOFRAN4 MG PO (16:32)
== END 2021-03-17 19:24 | disposition other institution (70) | DRG 871 ==
LOC: ER 18:02 → ERHOLD 21:41 → IMCU 22:42
PROC: 0JH63XZ Insertion of Tunneled Vascular Access Device into Chest Subcutaneous Tissue and Fascia, Percutaneous Approach (ICD-10-PCS; principal; 2021-03-15)
PROC: 02HV33Z Insertion of Infusion Device into Superior Vena Cava, Percutaneous Approach (ICD-10-PCS; 2021-03-15)
PROC: 0T25X0Z Change Drainage Device in Kidney, External Approach (ICD-10-PCS; 2021-03-15)
DX: A41.9 Sepsis, unspecified organism (principal); G82.50 Quadriplegia, unspecified; N39.0 Urinary tract infection, site not specified; Z16.12 Extended spectrum beta lactamase (ESBL) resistance; Z43.1 Encounter for attention to gastrostomy; M79.602 Pain in left arm; L89.152 Pressure ulcer of sacral region, stage 2; B96.4 Proteus (mirabilis) (morganii) as the cause of diseases classified elsewhere; B96.20 Unspecified Escherichia coli [E. coli] as the cause of diseases classified elsewhere; M19.012 Primary osteoarthritis, left shoulder; G89.4 Chronic pain syndrome; T83.022A Displacement of nephrostomy catheter, initial encounter
CPT/HCPCS: 36415; 36558; 50387; 50431; 71045; 73020; 73200; 74470; 76937; 77001; 80053; 81001; 82550; 82553; 82948; 83605; 84484; 85025; 85610; 85730; 87040; 87086; 87186; 93005; 93971; 99152; 99153; 99251; 99285; C1769; J0692; J1170; J2001; J2250; J3010; J7030; J7050; J7799; Q9967; U0002

== ENCOUNTER → 2021-03-24 | Day surgery (SDC) | payer MEDICARE ==
[~2021-03-24] MED LIST changes: +ADMELOG100 UNIT/1 SC; +B&O 60MG R/S 60 MG SUPP PR ONE; +COLACE100 MG PO; +DEXAMETHASONE SOD PHOS INJ 4 MG/ML VIAL ONE; +DEXTROSE 5% 250ML 250 ML IV ONE; +EPHEDRINE SULFATE INJ 50 MG/ML VIAL ONE; +FENTANYL CITRATE/PF 100MCG/2 ML INJ ONE; +GENTAMICIN 80MG/NS 100 ML 200 ML IV ONE; +IOPAMIDOL 300MG/ML 50ML INFUS..BTL IV ONE; +LIDOCAINE HCL 2% LOCAL INJ 5 ML SDV VIAL INJ ONE; +MEROPENEM-500 MG/50 IV; +ONDANSETRON HCL INJ 2MG/ML 2ML 2 MG/ML VIAL ONE; +PHENYLEPHRINE HCL 1% 10 MG/ML VIAL ONE; +PIPERACILLIN/TAZOBAC 3.375 GM VIAL ONE; +POVIDONE IODINE 0.05% 0.05 % ML PO ONE; +PROPOFOL IV EMULSION 10 MG/ML 20 ML VIAL ONE; +SEVOFLURANE INHAL SOLN 250 ML PEN BTL ONE; +SODIUM CHLORIDE 0.9% 50ML 50 ML ONE; +ZOFRAN4 MG PO
[2021-03-24 06:55] LABS: BASOPHILS % 1.1 % (0.0-1.0); EOSINOPHILS # (AUTO) 0.4 (0.0-0.4); EOSINOPHILS % 10.9 % (0.0-6.0); HEMATOCRIT 25.5 % (38.2-49.6); HEMOGLOBIN 7.4 g/dL (14.0-18.0); LYMPHOCYTES # (AUTO) 1.3 (1.0-3.2); LYMPHOCYTES % 33.7 % (18.0-39.1); MEAN CORPUSCULAR HEMOGLOBIN 24.2 pg (28-32); MEAN CORPUSCULAR VOLUME 83.3 fL (81-99); MONOCYTES # (AUTO) 0.5 (0.2-0.8); MONOCYTES % 12.2 % (4.4-11.3); NEUTROPHILS # (AUTO) 1.6 (2.1-6.9); NEUTROPHILS % 41.6 % (38.7-80.0); PLATELET COUNT 380 x10e3/uL (140-360); RED BLOOD COUNT 3.06 x10e6/uL (4.3-5.7); RED CELL DISTRIBUTION WIDTH 19.6 % (11.7-14.4)
[2021-03-24 07:12] LABS: ANION GAP 12.6 mmol/L (8-16); BLOOD UREA NITROGEN 10 mg/dL (7-26); BUN/CREATININE RATIO 16 (6-25); CALCIUM 8.9 mg/dL (8.4-10.2); CARBON DIOXIDE 26 mmol/L (22-29); CHLORIDE 106 mmol/L (98-107); CREATININE, SERUM 0.64 mg/dL (0.72-1.25); EST GLOMERULAR FILTRATION RATE > 60 ML/MIN (60-); GLUCOSE 82 mg/dL (74-118); POTASSIUM 3.6 mmol/L (3.5-5.1); SODIUM 141 mmol/L (136-145)
[2021-03-24 09:27] LABS: EOSINOPHILS % (MANUAL) 12 % (0-7); LYMPHOCYTES % (MANUAL) 35 % (19-48); METAMYELOCYTES % (MANUAL) 3 % (0-0); MONOCYTES % (MANUAL) 3 % (3.4-9.0); NEUTROPHILS % (MANUAL) 47 % (40-74)
[2021-03-24 09:28] LABS: ANISOCYTOSIS SLIG; HYPOCHROMASIA MODERATE; MICROCYTOSIS SLIG; POIKILOCYTOSIS SLIGHT; SCHISTOCYTES FEW
[2021-03-24 09:29] LABS: PLATELET ESTIMATE ADEQUATE; PLATELET MORPHOLOGY COMMENT NORMAL; RBC MORPHOLOGY COMMENT ABNORMAL
[2021-03-24 12:15] VITALS: BP 121/67
== END | disposition home or self-care (01) ==
LOC: OR 06:12
PROVIDERS: ATTEND Urology
DX: N20.0 Calculus of kidney (principal); N13.30 Unspecified hydronephrosis; N35.919 Unspecified urethral stricture, male, unspecified site; N40.1 Benign prostatic hyperplasia with lower urinary tract symptoms; N13.8 Other obstructive and reflux uropathy; N32.89 Other specified disorders of bladder; N32.3 Diverticulum of bladder; Z93.6 Other artificial openings of urinary tract status; G82.50 Quadriplegia, unspecified; G89.29 Other chronic pain; E11.9 Type 2 diabetes mellitus without complications; Z20.822 Contact with and (suspected) exposure to COVID-19; Z79.4 Long term (current) use of insulin
CPT/HCPCS: 36415; 52276; 52332; 52352; 52356; 74018; 74420; 80048; 82948; 85025; 87086; 88300; C1758 ×2; C1766; C1769; C2617; J1100; J1580; J2001; J2370; J2405; J2543; J2704; J7070; Q9967; U0002; J3010

== ENCOUNTER 2021-04-23 11:25 | Emergency (ER) | payer MEDICARE, OTHER ==
[~2021-04-23] VITALS: Ht 172.7 cm; Wt 102.1 kg
[~2021-04-23 11:25] MED LIST changes: -B&O 60MG R/S 60 MG SUPP PR ONE; -DEXAMETHASONE SOD PHOS INJ 4 MG/ML VIAL ONE; -DEXTROSE 5% 250ML 250 ML IV ONE; -EPHEDRINE SULFATE INJ 50 MG/ML VIAL ONE; -FENTANYL CITRATE/PF 100MCG/2 ML INJ ONE; -GENTAMICIN 80MG/NS 100 ML 200 ML IV ONE; -IOPAMIDOL 300MG/ML 50ML INFUS..BTL IV ONE; -LIDOCAINE HCL 2% LOCAL INJ 5 ML SDV VIAL INJ ONE; -ONDANSETRON HCL INJ 2MG/ML 2ML 2 MG/ML VIAL ONE; -PHENYLEPHRINE HCL 1% 10 MG/ML VIAL ONE; -PIPERACILLIN/TAZOBAC 3.375 GM VIAL ONE; -POVIDONE IODINE 0.05% 0.05 % ML PO ONE; -PROPOFOL IV EMULSION 10 MG/ML 20 ML VIAL ONE; -SEVOFLURANE INHAL SOLN 250 ML PEN BTL ONE; -SODIUM CHLORIDE 0.9% 50ML 50 ML ONE
[2021-04-23 18:49] VITALS: BP 101/65
== END 2021-04-23 18:15 | disposition home or self-care (01) ==
LOC: ER 11:32
DX: Z45.2 Encounter for adjustment and management of vascular access device (principal); I10 Essential (primary) hypertension; E11.9 Type 2 diabetes mellitus without complications; N18.9 Chronic kidney disease, unspecified; D64.9 Anemia, unspecified; G82.50 Quadriplegia, unspecified; Z93.3 Colostomy status; Z98.0 Intestinal bypass and anastomosis status
CPT/HCPCS: 36598; 74470; 99283

== ENCOUNTER 2021-12-18 08:19 | Inpatient (IN) | payer MEDICARE, OTHER ==
[~2021-12-18] VITALS: Ht 172.7 cm; Wt 102.1 kg
[2021-12-18] MEDS ORDERED: SODIUM CHLORIDE 0.9% 1000ML 1,000 ML IV SCH ×2 (08:30→10:45)
[2021-12-18] MEDS: CEFEPIME 1 GM in SODIUM CHLORIDE 0.9% 50ML 50 ML IV SCH ×2 (08:57→20:29)
[2021-12-18 08:59] LABS: BASOPHILS % 0.3 % (0.0-1.0); EOSINOPHILS % 0.1 % (0.0-6.0); HEMATOCRIT 39.1 % (38.2-49.6); HEMOGLOBIN 11.6 g/dL (14.0-18.0); LYMPHOCYTES # (AUTO) 0.8 (1.0-3.2); LYMPHOCYTES % 5.1 % (18.0-39.1); MEAN CORPUSCULAR HEMOGLOBIN 26.5 pg (28-32); MEAN CORPUSCULAR HGB CONC 29.7 g/dL (31-35); MEAN CORPUSCULAR VOLUME 89.5 fL (81-99); MONOCYTES # (AUTO) 1.6 (0.2-0.8); MONOCYTES % 10.5 % (4.4-11.3); NEUTROPHILS % 83.7 % (38.7-80.0); PLATELET COUNT 201 x10e3/uL (140-360); RED BLOOD COUNT 4.37 x10e6/uL (4.3-5.7); RED CELL DISTRIBUTION WIDTH 18.7 % (11.7-14.4)
[2021-12-18] MEDS ORDERED: ACETAMINOPHEN 325 MG SUPP PR ONE (09:00)
[2021-12-18] MEDS ORDERED: LACTATED RINGER'S 1,000 ML INJ ONE (09:00)
[2021-12-18 09:17] LABS: ALBUMIN 3.4 g/dL (3.5-5.0); ALBUMIN/GLOBULIN RATIO 0.7 (0.8-2.0); ANION GAP 19.7 mmol/L (8-16); CALCIUM 9.5 mg/dL (8.4-10.2); CREATININE, SERUM 4.78 mg/dL (0.72-1.25)
[2021-12-18 09:18] LABS: POTASSIUM 5.7 mmol/L (3.5-5.1)
[2021-12-18] MEDS ORDERED: SODIUM BICARBONATE 8.4% INJ 50 ML SYR IV STA (10:44)
[2021-12-18] MEDS ORDERED: SOD POLYSTYRENE SULFONATE SUSP 15 GM/60 ML BTL PO ONE (10:45)
[2021-12-18 11:13] LABS: COLOR,URINE YELLOW (YELLOW)
[2021-12-18 11:14] LABS: LEUKOCYTE ESTERASE ,URINE LARGE (NEGATIVE); NITRITE,URINE NEGATIVE (NEGATIVE); URINE UROBILINOGEN 0.2 mg/dL (0.2 - 1)
[2021-12-18 11:15] LABS: PROTEIN,URINE DIPSTICK >=300 (NEGATIVE)
[2021-12-18 11:16] LABS: KETONES,URINE NEGATIVE (NEGATIVE)
[2021-12-18 11:17] LABS: BACTERIA,URINE MODERATE /HPF; EPITHELIAL CELLS,URINE FEW /LPF; RBC,URINE >50 /HPF (0-5); WBC,URINE (MAN) >50 /HPF (0-5)
[2021-12-18 11:19] LABS: CLARITY,URINE TURBID (CLEAR)
[2021-12-18] MEDS: SODIUM CHLORIDE 0.9% 1000ML 1,000 ML IV SCH ×2 (11:37→17:08)
[2021-12-18 12:25] VITALS: BP 152/73
[2021-12-18 12:43] VITALS: BP 152/73
[2021-12-18 13:23] LABS: ANION GAP 18.7 mmol/L (8-16); CALCIUM 8.8 mg/dL (8.4-10.2); CREATININE, SERUM 4.36 mg/dL (0.72-1.25)
[2021-12-18 13:24] LABS: POTASSIUM 5.7 mmol/L (3.5-5.1)
[2021-12-18 15:56] VITALS: BP 115/72
[2021-12-18] MEDS ORDERED: Vancomycin IV 1 GM in SODIUM CHLORIDE 0.9% 250ML 250 ML IV ONE (16:00)
[2021-12-18] MEDS ORDERED: FUROSEMIDE INJ 10 MG/ML 4 ML VIAL IV ONE (17:15)
[2021-12-18 17:43] LABS: ABG PCO2 41 mmHg (35-45); ABG PH 7.35 (7.35-7.45)
[2021-12-18 17:44] LABS: ABG HCO3 23 mmol/L (22-26); ABG PO2 187 mmHg (80-105); ABG TCO2 24
[2021-12-18 20:29] VITALS: BP 129/75
[2021-12-19] VITALS (9 sets, daily range): BP systolic 98–161; BP diastolic 41–73
[2021-12-19] MEDS: SODIUM CHLORIDE 0.9% 1000ML 1,000 ML IV SCH ×3 (03:56→17:00)
[2021-12-19] MEDS: CEFEPIME 1 GM in SODIUM CHLORIDE 0.9% 50ML 50 ML IV SCH ×2 (08:00→20:17)
[2021-12-19 14:56] LABS: BASOPHILS % 0.2 % (0.0-1.0); EOSINOPHILS # (AUTO) 0.1 (0.0-0.4); EOSINOPHILS % 0.5 % (0.0-6.0); HEMATOCRIT 33.3 % (38.2-49.6); HEMOGLOBIN 9.9 g/dL (14.0-18.0); LYMPHOCYTES # (AUTO) 0.5 (1.0-3.2); LYMPHOCYTES % 5.3 % (18.0-39.1); MEAN CORPUSCULAR HEMOGLOBIN 26.5 pg (28-32); MEAN CORPUSCULAR HGB CONC 29.7 g/dL (31-35); MEAN CORPUSCULAR VOLUME 89.3 fL (81-99); MONOCYTES # (AUTO) 0.7 (0.2-0.8); MONOCYTES % 7.5 % (4.4-11.3); NEUTROPHILS # (AUTO) 8.1 (2.1-6.9); NEUTROPHILS % 86.3 % (38.7-80.0); PLATELET COUNT 182 x10e3/uL (140-360); RED BLOOD COUNT 3.73 x10e6/uL (4.3-5.7); RED CELL DISTRIBUTION WIDTH 18.5 % (11.7-14.4)
[2021-12-19 15:15] LABS: ANION GAP 17.5 mmol/L (8-16); CALCIUM 8.8 mg/dL (8.4-10.2); CREATININE, SERUM 3.6 mg/dL (0.72-1.25); POTASSIUM 4.5 mmol/L (3.5-5.1)
[2021-12-20] VITALS (8 sets, daily range): BP systolic 136–158; BP diastolic 71–83
[2021-12-20] MEDS: SODIUM CHLORIDE 0.9% 1000ML 1,000 ML IV SCH ×3 (01:54→17:23)
[2021-12-20 06:42] LABS: ANION GAP 18.2 mmol/L (8-16); CALCIUM 8.5 mg/dL (8.4-10.2); CREATININE, SERUM 2.89 mg/dL (0.72-1.25); POTASSIUM 4.2 mmol/L (3.5-5.1)
[2021-12-20] MEDS: MEROPENEM 1 GM in SODIUM CHLORIDE 0.9% 100 ML IV SCH ×2 (09:11→22:09)
[2021-12-21] VITALS (7 sets, daily range): BP systolic 144–158; BP diastolic 61–76
[2021-12-21] MEDS: SODIUM CHLORIDE 0.9% 1000ML 1,000 ML IV SCH ×3 (00:24→16:14)
[2021-12-21 05:21] LABS: BASOPHILS % 0.5 % (0.0-1.0); EOSINOPHILS # (AUTO) 0.1 (0.0-0.4); HEMATOCRIT 31.4 % (38.2-49.6); HEMOGLOBIN 9.4 g/dL (14.0-18.0); LYMPHOCYTES # (AUTO) 0.5 (1.0-3.2); LYMPHOCYTES % 7.9 % (18.0-39.1); MEAN CORPUSCULAR HEMOGLOBIN 26.2 pg (28-32); MEAN CORPUSCULAR HGB CONC 29.9 g/dL (31-35); MEAN CORPUSCULAR VOLUME 87.5 fL (81-99); MONOCYTES # (AUTO) 0.5 (0.2-0.8); MONOCYTES % 7.9 % (4.4-11.3); NEUTROPHILS # (AUTO) 5.1 (2.1-6.9); NEUTROPHILS % 82.4 % (38.7-80.0); PLATELET COUNT 220 x10e3/uL (140-360); RED BLOOD COUNT 3.59 x10e6/uL (4.3-5.7); RED CELL DISTRIBUTION WIDTH 17.5 % (11.7-14.4)
[2021-12-21 05:40] LABS: ANION GAP 14.7 mmol/L (8-16); CALCIUM 8.8 mg/dL (8.4-10.2); CREATININE, SERUM 1.82 mg/dL (0.72-1.25); POTASSIUM 3.7 mmol/L (3.5-5.1)
[2021-12-21] MEDS: MEROPENEM 1 GM in SODIUM CHLORIDE 0.9% 100 ML IV SCH (08:48)
[2021-12-21] MEDS ORDERED: INSULIN LISPRO 100 UNIT/1 ML 3ML VIAL SQ SCH ×3 (15:29→21:00)
[2021-12-21] MEDS ORDERED: ACETAMINOPHEN 325 MG TAB PO PRN (15:30)
[2021-12-21] MEDS ORDERED: HYDROCODONE/APAP 10MG-325MG TAB PO PRN (15:30)
[2021-12-21] MEDS ORDERED: DEXTROSE 50% SYRINGE 50 ML IV PRN ×2 (16:15→17:00)
[2021-12-21] MEDS ORDERED: NPH, HUMAN INSULIN ISOPHANE 100 UNIT/1 ML 3ML VIAL SQ SCH (16:30)
[2021-12-21] MEDS ORDERED: DOCUSATE SODIUM 100 MG CAP PO SCH (17:00)
[2021-12-21] MEDS ORDERED: ARTIFICIAL TEARS (OPTH) 15 ML BTL OU SCH (21:00)
[2021-12-21] MEDS ORDERED: BACLOFEN 10 MG TAB PO SCH (21:00)
[2021-12-21] MEDS ORDERED: GABAPENTIN 300 MG CAP PO SCH (22:00)
[2021-12-22] MEDS ORDERED: AMLODIPINE BESYLATE 5 MG TAB PO SCH (09:00)
== END 2021-12-21 22:30 | DRG 698 ==
LOC: ER 08:44 → ERHOLD 10:54 → MED/SURG3 12:25
DX: T83.518A Infection and inflammatory reaction due to other urinary catheter, initial encounter (principal); A41.9 Sepsis, unspecified organism; L89.154 Pressure ulcer of sacral region, stage 4; R65.21 Severe sepsis with septic shock; N39.0 Urinary tract infection, site not specified; E87.2 Acidosis; Z16.12 Extended spectrum beta lactamase (ESBL) resistance; E11.9 Type 2 diabetes mellitus without complications; E87.8 Other disorders of electrolyte and fluid balance, not elsewhere classified; E87.5 Hyperkalemia; B96.20 Unspecified Escherichia coli [E. coli] as the cause of diseases classified elsewhere
CPT/HCPCS: 36415; 36600; 51700; 71045; 80048; 80053; 81001; 82805; 82948; 83605; 83880; 84484; 85025; 87040; 87071; 87086; 87186; 87205; 93005; 94799; 99251; 99284; J0692; J1940; J2185; J3370; J7030; J7050; J7121; U0002

== ENCOUNTER 2022-03-02 08:52 | Inpatient (IN) | payer MEDICARE, OTHER ==
[~2022-03-02] VITALS: Ht 170.2 cm; Wt 102.1 kg
[2022-03-02] MEDS ORDERED: SODIUM CHLORIDE 0.9% 1000ML 1,000 ML IV SCH ×3 (09:15→12:15)
[2022-03-02 10:59] LABS: BASOPHILS # (AUTO) 0.1 (0.0-0.1); BASOPHILS % 0.3 % (0.0-1.0); EOSINOPHILS % 0.1 % (0.0-6.0); HEMATOCRIT 39.8 % (38.2-49.6); HEMOGLOBIN 12.4 g/dL (14.0-18.0); LYMPHOCYTES # (AUTO) 0.8 (1.0-3.2); LYMPHOCYTES % 4.6 % (18.0-39.1); MEAN CORPUSCULAR HEMOGLOBIN 27.4 pg (28-32); MEAN CORPUSCULAR HGB CONC 31.2 g/dL (31-35); MEAN CORPUSCULAR VOLUME 88.1 fL (81-99); MONOCYTES # (AUTO) 1.8 (0.2-0.8); MONOCYTES % 9.7 % (4.4-11.3); NEUTROPHILS # (AUTO) 15.2 (2.1-6.9); NEUTROPHILS % 84.7 % (38.7-80.0); PLATELET COUNT 343 x10e3/uL (140-360); RED BLOOD COUNT 4.52 x10e6/uL (4.3-5.7); RED CELL DISTRIBUTION WIDTH 16.3 % (11.7-14.4)
[2022-03-02 11:18] LABS: ALBUMIN 3.4 g/dL (3.5-5.0); ALBUMIN/GLOBULIN RATIO 0.6 (0.8-2.0); ANION GAP 18.3 mmol/L (8-16); CALCIUM 9.1 mg/dL (8.4-10.2); CREATININE, SERUM 2.64 mg/dL (0.72-1.25); POTASSIUM 4.3 mmol/L (3.5-5.1)
[2022-03-02 12:03] LABS: CLARITY,URINE TURBID (CLEAR); COLOR,URINE PINK (YELLOW); LEUKOCYTE ESTERASE ,URINE LARGE (NEGATIVE)
[2022-03-02 12:04] LABS: NITRITE,URINE NEGATIVE (NEGATIVE); PROTEIN,URINE DIPSTICK >=300 (NEGATIVE); URINE UROBILINOGEN 0.2 mg/dL (0.2 - 1)
[2022-03-02 12:05] LABS: KETONES,URINE NEGATIVE (NEGATIVE)
[2022-03-02 12:13] LABS: RBC,URINE >50 /HPF (0-5)
[2022-03-02 12:15] LABS: URIC ACID CRYSTALS,URINE MODERATE (FEW)
[2022-03-02 12:16] LABS: BACTERIA,URINE MODERATE /HPF; EPITHELIAL CELLS,URINE FEW /LPF; TRIPLE PHOSPHATE CRYSTAL,UR FEW (FEW); WBC,URINE (MAN) 0-5 /HPF (0-5)
[2022-03-02 12:39] LABS: INR 1.73; PROTHROMBIN TIME 21.6 seconds (11.9-14.5)
[2022-03-02 12:40] LABS: PARTIAL THROMBOPLASTIN TIME 42.9 seconds (23.8-35.5)
[2022-03-02] MEDS: SODIUM CHLORIDE 0.9% 1000ML 1,000 ML IV SCH (14:47)
[2022-03-02 15:27] VITALS: BP 115/69
[2022-03-02 19:31] VITALS: BP 115/69
[2022-03-02 20:00] VITALS: BP 117/53
[2022-03-02] MEDS ORDERED: HYDROCODON-ACE1 EAC9 PO (20:47)
[2022-03-02] MEDS ORDERED: ARTIFICIAL TEA1 EACH OU (20:47)
[2022-03-02] MEDS ORDERED: ASCORBIC ACID500 MG PO (20:47)
[2022-03-02 21:00] VITALS: BP 117/53
[2022-03-02] MEDS ORDERED: CEFTRIAXONE 1 GM VIAL IV SCH (21:00)
[2022-03-02] MEDS ORDERED: ZINC50 M3 PO (21:18)
[2022-03-02] MEDS ORDERED: NOVOLIN R100 UNIT/1 SQ (21:48)
[2022-03-03] VITALS (9 sets, daily range): BP systolic 102–159; BP diastolic 38–79
[2022-03-03] MEDS: SODIUM CHLORIDE 0.9% 1000ML 1,000 ML IV SCH ×4 (01:15→20:47)
[2022-03-03 05:37] LABS: BASOPHILS % 0.2 % (0.0-1.0); EOSINOPHILS % 0.3 % (0.0-6.0); HEMOGLOBIN 9.3 g/dL (14.0-18.0); LYMPHOCYTES # (AUTO) 0.5 (1.0-3.2); LYMPHOCYTES % 3.8 % (18.0-39.1); MEAN CORPUSCULAR HEMOGLOBIN 27.3 pg (28-32); MONOCYTES # (AUTO) 0.9 (0.2-0.8); MONOCYTES % 6.8 % (4.4-11.3); NEUTROPHILS # (AUTO) 11.7 (2.1-6.9); NEUTROPHILS % 88.6 % (38.7-80.0); PLATELET COUNT 296 x10e3/uL (140-360); RED BLOOD COUNT 3.41 x10e6/uL (4.3-5.7); RED CELL DISTRIBUTION WIDTH 16.1 % (11.7-14.4)
[2022-03-03 06:01] LABS: CALCIUM 8.1 mg/dL (8.4-10.2); CREATININE, SERUM 2.6 mg/dL (0.72-1.25)
[2022-03-03] MEDS ORDERED: DEXTROSE 50% SYRINGE 50 ML IV PRN (19:45)
[2022-03-03] MEDS ORDERED: ACETAMINOPHEN 325 MG TAB PO PRN (19:45)
[2022-03-03] MEDS ORDERED: HYDROCODONE/APAP 10MG-325MG TAB PO PRN (19:45)
[2022-03-03] MEDS: BACLOFEN 10 MG TAB PO SCH (21:00)
[2022-03-03] MEDS: ARTIFICIAL TEARS (OPTH) 15 ML BTL OU SCH (21:00)
[2022-03-03] MEDS: GABAPENTIN 300 MG CAP PO SCH (21:43)
[2022-03-03] MEDS: INSULIN REGULAR, HUMAN 100 UNIT/1 ML SQ SCH (21:43)
[2022-03-04] VITALS (9 sets, daily range): BP systolic 80–165; BP diastolic 54–76
[2022-03-04] MEDS: SODIUM CHLORIDE 0.9% 1000ML 1,000 ML IV SCH ×2 (04:00→11:57)
[2022-03-04] MEDS: GABAPENTIN 300 MG CAP PO SCH ×3 (05:43→21:35)
[2022-03-04] MEDS: INSULIN REGULAR, HUMAN 100 UNIT/1 ML SQ SCH ×4 (07:58→20:59)
[2022-03-04] MEDS: ARTIFICIAL TEARS (OPTH) 15 ML BTL OU SCH ×3 (09:00→20:55)
[2022-03-04] MEDS: PROTEIN SUPPLEMENT PO SCH ×2 (09:00→16:32)
[2022-03-04] MEDS ORDERED: ZINC SULFATE 220 MG CAP PO SCH (09:00)
[2022-03-04] MEDS: AMLODIPINE BESYLATE 5 MG TAB PO SCH ×2 (09:00→12:00)
[2022-03-04] MEDS ORDERED: MULTIVITAMINS/MINERALS TAB PO SCH (09:00)
[2022-03-04] MEDS: BACLOFEN 10 MG TAB PO SCH ×3 (09:07→20:54)
[2022-03-04] MEDS: DOCUSATE SODIUM 100 MG CAP PO SCH ×2 (09:07→16:43)
[2022-03-04] MEDS: ASCORBIC ACID 500 MG TAB PO SCH ×2 (09:08→16:43)
== END 2022-03-04 22:50 | DRG 871 ==
LOC: ER 08:55 → ERHOLD 12:21 → MED/SURG2 14:58
PROC: 02HV33Z Insertion of Infusion Device into Superior Vena Cava, Percutaneous Approach (ICD-10-PCS; principal; 2022-03-02)
DX: A41.51 Sepsis due to Escherichia coli [E. coli] (principal); G82.50 Quadriplegia, unspecified; N39.0 Urinary tract infection, site not specified; Z16.12 Extended spectrum beta lactamase (ESBL) resistance; D68.9 Coagulation defect, unspecified; B96.20 Unspecified Escherichia coli [E. coli] as the cause of diseases classified elsewhere; Z20.822 Contact with and (suspected) exposure to COVID-19; L89.153 Pressure ulcer of sacral region, stage 3; L89.622 Pressure ulcer of left heel, stage 2; L89.892 Pressure ulcer of other site, stage 2; G62.9 Polyneuropathy, unspecified; B96.4 Proteus (mirabilis) (morganii) as the cause of diseases classified elsewhere; A41.89 Other specified sepsis; Z86.16 Personal history of COVID-19; H40.9 Unspecified glaucoma; N40.1 Benign prostatic hyperplasia with lower urinary tract symptoms; R33.8 Other retention of urine; N31.9 Neuromuscular dysfunction of bladder, unspecified; Q54.9 Hypospadias, unspecified
CPT/HCPCS: 36415; 36555; 70450; 71045; 80048; 80053; 81001; 82948; 83605; 85025; 85610; 85730; 87040; 87071; 87086; 87186; 87205; 93005; 94799; 99251; 99285; J0696; J2185; J7030; U0002

== ENCOUNTER 2022-06-13 12:38 | Inpatient (IN) | payer MEDICARE, OTHER ==
[2022-06-13] VITALS (26 sets, daily range): BP systolic 71–172; BP diastolic 47–130
[~2022-06-13] VITALS: Ht 170.2 cm; Wt 89.4 kg
[~2022-06-13 12:38] MED LIST changes: +ARTIFICIAL TEA1 EACH OU; +ASCORBIC ACID500 MG PO; +HYDROCODON-ACE1 EAC9 PO; +NOVOLIN R100 UNIT/1 SQ; +ZINC50 M3 PO
[2022-06-13] MEDS ORDERED: SODIUM CHLORIDE 0.9% 1000ML 1,980 ML IV ONE (13:30)
[2022-06-13] MEDS ORDERED: MEROPENEM 1 GM in SODIUM CHLORIDE 0.9% 100 ML IV ONE (14:15)
[2022-06-13] MEDS: Vancomycin IV 1 GM in SODIUM CHLORIDE 0.9% 250ML 250 ML IV SCH ×2 (14:19→14:30)
[2022-06-13 14:27] LABS: BASOPHILS % 0.3 % (0.0-1.0); EOSINOPHILS # (AUTO) 0.1 (0.0-0.4); EOSINOPHILS % 0.8 % (0.0-6.0); HEMATOCRIT 30.5 % (38.2-49.6); LYMPHOCYTES # (AUTO) 0.4 (1.0-3.2); LYMPHOCYTES % 3.2 % (18.0-39.1); MEAN CORPUSCULAR HGB CONC 29.5 g/dL (31-35); MEAN CORPUSCULAR VOLUME 88.2 fL (81-99); MONOCYTES # (AUTO) 1.2 (0.2-0.8); MONOCYTES % 9.7 % (4.4-11.3); NEUTROPHILS # (AUTO) 10.2 (2.1-6.9); NEUTROPHILS % 85.7 % (38.7-80.0); PLATELET COUNT 328 x10e3/uL (140-360); RED BLOOD COUNT 3.46 x10e6/uL (4.3-5.7); RED CELL DISTRIBUTION WIDTH 17.3 % (11.7-14.4)
[2022-06-13] MEDS ORDERED: SODIUM CHLORIDE FLUSH 10 ML SYR INJ PRN (14:45)
[2022-06-13 14:49] LABS: ALBUMIN/GLOBULIN RATIO 0.6 (0.8-2.0); ANION GAP 16.2 mmol/L (8-16); CALCIUM 8.1 mg/dL (8.4-10.2); CREATININE, SERUM 4.16 mg/dL (0.72-1.25); POTASSIUM 4.2 mmol/L (3.5-5.1)
[2022-06-13 15:10] LABS: CLARITY,URINE SL CLOUDY (CLEAR); COLOR,URINE YELLOW (YELLOW); LEUKOCYTE ESTERASE ,URINE MODERATE (NEGATIVE)
[2022-06-13 15:11] LABS: KETONES,URINE NEGATIVE (NEGATIVE); NITRITE,URINE NEGATIVE (NEGATIVE); PROTEIN,URINE DIPSTICK >=300 (NEGATIVE); URINE UROBILINOGEN 0.2 mg/dL (0.2 - 1)
[2022-06-13 15:12] LABS: BACTERIA,URINE MANY /HPF; WBC,URINE (MAN) >50 /HPF (0-5)
[2022-06-13] MEDS ORDERED: DEXTROSE 50% SYRINGE 50 ML IV PRN (16:00)
[2022-06-13] MEDS: NOREPINEPHRINE 8 MG/D5W 250 ML 250 ML IV SCH (16:03)
[2022-06-13] MEDS ORDERED: SODIUM CHLORIDE 0.9% 1000ML 1,000 ML IV ONE (16:30)
[2022-06-13] MEDS: ASCORBIC ACID 500 MG TAB PO SCH (16:52)
[2022-06-13] MEDS: DOCUSATE SODIUM 100 MG CAP PO SCH (16:52)
[2022-06-13] MEDS: INSULIN REGULAR, HUMAN 100 UNIT/1 ML SQ SCH ×2 (17:21→21:31)
[2022-06-13] MEDS: HEPARIN SOD (PORCINE) 5,000 UNIT/ML VIAL SC SCH (21:31)
[2022-06-14] VITALS (74 sets, daily range): BP systolic 47–187; BP diastolic 16–133
[2022-06-14] MEDS ORDERED: SODIUM CHLORIDE 0.9% 250ML 250 ML ONE (06:09)
[2022-06-14 07:24] LABS: BASOPHILS % 0.2 % (0.0-1.0); EOSINOPHILS # (AUTO) 0.1 (0.0-0.4); EOSINOPHILS % 0.5 % (0.0-6.0); HEMATOCRIT 32.3 % (38.2-49.6); HEMOGLOBIN 9.8 g/dL (14.0-18.0); LYMPHOCYTES # (AUTO) 0.4 (1.0-3.2); LYMPHOCYTES % 3.4 % (18.0-39.1); MEAN CORPUSCULAR HEMOGLOBIN 26.1 pg (28-32); MEAN CORPUSCULAR HGB CONC 30.3 g/dL (31-35); MEAN CORPUSCULAR VOLUME 85.9 fL (81-99); MONOCYTES # (AUTO) 0.7 (0.2-0.8); MONOCYTES % 5.8 % (4.4-11.3); NEUTROPHILS # (AUTO) 11.2 (2.1-6.9); NEUTROPHILS % 89.5 % (38.7-80.0); PLATELET COUNT 377 x10e3/uL (140-360); RED BLOOD COUNT 3.76 x10e6/uL (4.3-5.7); RED CELL DISTRIBUTION WIDTH 16.9 % (11.7-14.4)
[2022-06-14 07:49] LABS: ANION GAP 19.1 mmol/L (8-16); CALCIUM 8.1 mg/dL (8.4-10.2); CREATININE, SERUM 3.01 mg/dL (0.72-1.25); POTASSIUM 4.1 mmol/L (3.5-5.1)
[2022-06-14] MEDS: INSULIN REGULAR, HUMAN 100 UNIT/1 ML SQ SCH ×4 (08:21→21:00)
[2022-06-14] MEDS: HEPARIN SOD (PORCINE) 5,000 UNIT/ML VIAL SC SCH ×2 (08:21→21:32)
[2022-06-14] MEDS: ZINC SULFATE 220 MG CAP PO SCH ×2 (08:22→08:36)
[2022-06-14] MEDS: ASCORBIC ACID 500 MG TAB PO SCH ×3 (08:22→16:36)
[2022-06-14] MEDS: DOCUSATE SODIUM 100 MG CAP PO SCH ×3 (08:22→16:36)
[2022-06-14] MEDS ORDERED: ZINC SULFATE 50 MG PO SCH (09:00)
[2022-06-14] MEDS: NOREPINEPHRINE 8 MG/D5W 250 ML 250 ML IV SCH (15:30)
[2022-06-14] MEDS: SODIUM BICARBONATE 8.4% 50 ML in SODIUM CHLORIDE 0.45% 1,000 ML IV SCH (17:58)
[2022-06-15] VITALS (16 sets, daily range): BP systolic 117–139; BP diastolic 54–71
[2022-06-15] MEDS: SODIUM BICARBONATE 8.4% 50 ML in SODIUM CHLORIDE 0.45% 1,000 ML IV SCH (03:45)
[2022-06-15 07:28] LABS: BASOPHILS % 0.5 % (0.0-1.0); EOSINOPHILS # (AUTO) 0.1 (0.0-0.4); EOSINOPHILS % 1.1 % (0.0-6.0); HEMATOCRIT 29.3 % (38.2-49.6); LYMPHOCYTES # (AUTO) 0.6 (1.0-3.2); LYMPHOCYTES % 9.9 % (18.0-39.1); MEAN CORPUSCULAR HEMOGLOBIN 25.8 pg (28-32); MEAN CORPUSCULAR HGB CONC 30.7 g/dL (31-35); MONOCYTES # (AUTO) 0.7 (0.2-0.8); MONOCYTES % 10.9 % (4.4-11.3); NEUTROPHILS # (AUTO) 4.9 (2.1-6.9); PLATELET COUNT 349 x10e3/uL (140-360); RED BLOOD COUNT 3.49 x10e6/uL (4.3-5.7)
[2022-06-15] MEDS: INSULIN REGULAR, HUMAN 100 UNIT/1 ML SQ SCH ×3 (07:30→16:30)
[2022-06-15 08:05] LABS: ALBUMIN 2.8 g/dL (3.5-5.0); ALBUMIN/GLOBULIN RATIO 0.6 (0.8-2.0); ANION GAP 14.8 mmol/L (8-16); CALCIUM 7.9 mg/dL (8.4-10.2); CREATININE, SERUM 2.25 mg/dL (0.72-1.25); POTASSIUM 3.8 mmol/L (3.5-5.1)
[2022-06-15] MEDS: DOCUSATE SODIUM 100 MG CAP PO SCH ×2 (08:46→16:39)
[2022-06-15] MEDS: ASCORBIC ACID 500 MG TAB PO SCH ×2 (08:47→16:39)
[2022-06-15] MEDS: HEPARIN SOD (PORCINE) 5,000 UNIT/ML VIAL SC SCH (08:47)
[2022-06-15] MEDS: ZINC SULFATE 220 MG CAP PO SCH (08:47)
== END 2022-06-15 19:00 | DRG 698 ==
LOC: ER 13:03 → ERHOLD 14:39 → ICU 16:12
PROC: 02HV33Z Insertion of Infusion Device into Superior Vena Cava, Percutaneous Approach (ICD-10-PCS; principal; 2022-06-13)
PROC: 3E043XZ Introduction of Vasopressor into Central Vein, Percutaneous Approach (ICD-10-PCS; 2022-06-13)
PROC: 3E04329 Introduction of Other Anti-infective into Central Vein, Percutaneous Approach (ICD-10-PCS; 2022-06-13)
DX: T83.511A Infection and inflammatory reaction due to indwelling urethral catheter, initial encounter (principal); A41.51 Sepsis due to Escherichia coli [E. coli]; G82.50 Quadriplegia, unspecified; R65.21 Severe sepsis with septic shock; N10 Acute pyelonephritis; N17.9 Acute kidney failure, unspecified; Z16.12 Extended spectrum beta lactamase (ESBL) resistance; L89.159 Pressure ulcer of sacral region, unspecified stage; L89.622 Pressure ulcer of left heel, stage 2; L89.612 Pressure ulcer of right heel, stage 2; E11.22 Type 2 diabetes mellitus with diabetic chronic kidney disease; D50.0 Iron deficiency anemia secondary to blood loss (chronic); I12.9 Hypertensive chronic kidney disease with stage 1 through stage 4 chronic kidney disease, or unspecified chronic kidney disease; N18.9 Chronic kidney disease, unspecified; Z93.3 Colostomy status; Z96.0 Presence of urogenital implants; Z93.6 Other artificial openings of urinary tract status; N31.9 Neuromuscular dysfunction of bladder, unspecified; N39.498 Other specified urinary incontinence; M24.50 Contracture, unspecified joint; Z20.822 Contact with and (suspected) exposure to COVID-19; Z79.4 Long term (current) use of insulin
CPT/HCPCS: 36415; 36555; 51700; 70450; 71045; 80048; 80053; 81001; 82948; 83605; 85025; 87040; 87086; 87186; 93005; 94660; 94799; 99251; 99284; J0692; J1644; J1817; J2185; J3370; J7030; J7050

== ENCOUNTER → 2022-08-23 | Outpatient (CLI) | payer MEDICARE, OTHER ==
[~2022-08-23] MED LIST changes: +FENTANYL CITRATE/PF 100MCG/2 ML INJ ONE; +MIDAZOLAM HCL 2 MG/2 ML VIAL ONE; +SODIUM CHLORIDE 0.9% 250ML 250 ML ONE
== END ==
LOC: DX 13:54
DX: Z43.8 Encounter for attention to other artificial openings (principal)
CPT/HCPCS: 36558; 76937; 77001; C1751; J3010; J7050; J2250

== ENCOUNTER → 2022-10-11 | Outpatient (CLI) | payer MEDICARE, OTHER ==
[~2022-10-11] MED LIST changes: -FENTANYL CITRATE/PF 100MCG/2 ML INJ ONE; -MIDAZOLAM HCL 2 MG/2 ML VIAL ONE; -SODIUM CHLORIDE 0.9% 250ML 250 ML ONE
== END ==
LOC: DX 12:13
DX: Z45.2 Encounter for adjustment and management of vascular access device (principal)
CPT/HCPCS: 36589; 71045

== ENCOUNTER 2022-12-17 14:16 | Emergency (ER) | payer MEDICARE, OTHER ==
[~2022-12-17] VITALS: Ht 170.2 cm; Wt 89.4 kg
[2022-12-17 17:09] VITALS: BP 121/64
== END 2022-12-17 17:11 ==
LOC: ER 14:24
DX: H61.21 Impacted cerumen, right ear (principal); I12.9 Hypertensive chronic kidney disease with stage 1 through stage 4 chronic kidney disease, or unspecified chronic kidney disease; E11.22 Type 2 diabetes mellitus with diabetic chronic kidney disease; N18.9 Chronic kidney disease, unspecified; D64.9 Anemia, unspecified; M10.9 Gout, unspecified; G82.50 Quadriplegia, unspecified; Z93.3 Colostomy status
CPT/HCPCS: 87040; 94760; 99284

== ENCOUNTER 2023-02-16 12:06 | Inpatient (IN) | payer MEDICARE, OTHER ==
[~2023-02-16] VITALS: Ht 167.6 cm; Wt 100.2 kg
[2023-02-16 12:34] LABS: BASOPHILS % 0.1 % (0.0-1.0); HEMATOCRIT 26.8 % (38.2-49.6); LYMPHOCYTES # (AUTO) 0.5 (1.0-3.2); LYMPHOCYTES % 2.3 % (18.0-39.1); MEAN CORPUSCULAR HEMOGLOBIN 24.6 pg (28-32); MEAN CORPUSCULAR HGB CONC 29.9 g/dL (31-35); MEAN CORPUSCULAR VOLUME 82.5 fL (81-99); MONOCYTES # (AUTO) 1.7 (0.2-0.8); NEUTROPHILS # (AUTO) 18.6 (2.1-6.9); NEUTROPHILS % 89.1 % (38.7-80.0); PLATELET COUNT 334 x10e3/uL (140-360); RED BLOOD COUNT 3.25 x10e6/uL (4.3-5.7); RED CELL DISTRIBUTION WIDTH 22.3 % (11.7-14.4)
[2023-02-16 12:46] LABS: ALBUMIN 3.1 g/dL (3.5-5.0); ALBUMIN/GLOBULIN RATIO 0.7 (0.8-2.0); ANION GAP 16.2 mmol/L (8-16); CALCIUM 8.6 mg/dL (8.4-10.2); CREATININE, SERUM 1.24 mg/dL (0.72-1.25); POTASSIUM 4.2 mmol/L (3.5-5.1)
[2023-02-16] MEDS ORDERED: Vancomycin IV 1 GM in SODIUM CHLORIDE 0.9% 250ML 250 ML IV STA (13:34)
[2023-02-16] MEDS ORDERED: SODIUM CHLORIDE 0.9% 1000ML 1,000 ML IV SCH (13:45)
[2023-02-16] MEDS ORDERED: SODIUM CHLORIDE 0.9% 1000ML 2,000 ML ONE (14:15)
[2023-02-16] MEDS: SODIUM CHLORIDE 0.9% 1000ML 1,000 ML IV SCH ×2 (14:27→21:34)
[2023-02-16 14:45] LABS: CLARITY,URINE TURBID (CLEAR); COLOR,URINE BROWN (YELLOW); LEUKOCYTE ESTERASE ,URINE LARGE (NEGATIVE); NITRITE,URINE POSITIVE (NEGATIVE); PROTEIN,URINE DIPSTICK >=300 (NEGATIVE)
[2023-02-16 14:46] LABS: KETONES,URINE NEGATIVE (NEGATIVE); URINE UROBILINOGEN 0.2 mg/dL (0.2 - 1)
[2023-02-16 14:58] LABS: BACTERIA,URINE MANY /HPF; WBC,URINE (MAN) 21-50 /HPF (0-5)
[2023-02-16] MEDS ORDERED: ONDANSETRON HCL INJ 2MG/ML 2ML 2 MG/ML VIAL IV STA (15:19)
[2023-02-16] MEDS ORDERED: ACETAMINOPHEN 325 MG TAB PO ONE (15:30)
[2023-02-16 19:05] VITALS: BP 130/60
[2023-02-16 19:24] VITALS: BP 129/62
[2023-02-16] MEDS ORDERED: ONDANSETRON HCL INJ 2MG/ML 2ML 2 MG/ML VIAL IV PRN (19:30)
[2023-02-16] MEDS ORDERED: ACETAMINOPHEN 325 MG TAB PO PRN (19:30)
[2023-02-16] MEDS ORDERED: DEXTROSE 50% SYRINGE 50 ML IV PRN ×2 (19:30→20:00)
[2023-02-16] MEDS ORDERED: LABETALOL HCL 5 MG/ML 20ML VIAL IV PRN (19:30)
[2023-02-16] MEDS ORDERED: NAPROXEN 250 MG TAB PO PRN (19:45)
[2023-02-16] MEDS ORDERED: Morphine 4mg INJECTION 4 MG/ML INJ IV PRN (19:45)
[2023-02-16] MEDS ORDERED: HYDROCODONE/APAP 10MG-325MG TAB PO PRN (19:45)
[2023-02-16] MEDS ORDERED: ASPIRIN CHEW81 MG PO (19:54)
[2023-02-16] MEDS ORDERED: ALLOPURINOL300 MG PO (19:54)
[2023-02-16] MEDS ORDERED: CHOLECALCIFEROL1 GM PO (19:54)
[2023-02-16] MEDS ORDERED: TEARS LUBRICANT15 ML OU (19:54)
[2023-02-16] MEDS ORDERED: SENOKOT-S TABL1 EACH PO (19:54)
[2023-02-16] MEDS ORDERED: VITAMIN C500 MG PO (19:54)
[2023-02-16] MEDS ORDERED: JUVEN PACKET1 EACH PO (19:54)
[2023-02-16] MEDS ORDERED: XALATAN2.5 ML OU (19:54)
[2023-02-16] MEDS ORDERED: MYLANTA MAXIMUM10 ML PO (19:54)
[2023-02-16] MEDS ORDERED: FLOMAX0.4 MG PO (19:54)
[2023-02-16 20:00] VITALS: BP 112/57
[2023-02-16 21:00] VITALS: BP 112/57
[2023-02-16] MEDS: INSULIN LISPRO 100 UNIT/1 ML 3ML VIAL SQ SCH (21:00)
[2023-02-16] MEDS ORDERED: INSULIN LISPRO 100 UNIT/1 ML 3ML VIAL SQ SCH (21:00)
[2023-02-17] VITALS (7 sets, daily range): BP systolic 117–139; BP diastolic 52–89
[2023-02-17] MEDS: SODIUM CHLORIDE 0.9% 1000ML 1,000 ML IV SCH ×2 (06:13→17:51)
[2023-02-17 06:32] LABS: BASOPHILS % 0.1 % (0.0-1.0); EOSINOPHILS % 0.1 % (0.0-6.0); HEMATOCRIT 23.4 % (38.2-49.6); LYMPHOCYTES # (AUTO) 0.7 (1.0-3.2); LYMPHOCYTES % 4.3 % (18.0-39.1); MEAN CORPUSCULAR HEMOGLOBIN 24.5 pg (28-32); MEAN CORPUSCULAR HGB CONC 29.9 g/dL (31-35); MEAN CORPUSCULAR VOLUME 81.8 fL (81-99); MONOCYTES # (AUTO) 1.1 (0.2-0.8); MONOCYTES % 7.1 % (4.4-11.3); NEUTROPHILS # (AUTO) 13.4 (2.1-6.9); NEUTROPHILS % 87.9 % (38.7-80.0); PLATELET COUNT 279 x10e3/uL (140-360); RED BLOOD COUNT 2.86 x10e6/uL (4.3-5.7); RED CELL DISTRIBUTION WIDTH 22.1 % (11.7-14.4)
[2023-02-17 06:57] LABS: ALBUMIN 2.6 g/dL (3.5-5.0); ALBUMIN/GLOBULIN RATIO 0.7 (0.8-2.0); ANION GAP 15.7 mmol/L (8-16); CALCIUM 7.8 mg/dL (8.4-10.2); CREATININE, SERUM 1.03 mg/dL (0.72-1.25); MAGNESIUM 1.8 MG/DL (1.3-2.1); POTASSIUM 3.7 mmol/L (3.5-5.1)
[2023-02-17 07:19] LABS: FERRITIN 521.12 ng/mL (21.81-274.66); THYROID STIMULATING HORMONE 2.139 uIU/mL (0.350-4.940)
[2023-02-17] MEDS: INSULIN LISPRO 100 UNIT/1 ML 3ML VIAL SQ SCH ×4 (07:30→21:00)
[2023-02-17] MEDS: DOCUSATE SODIUM 100 MG CAP PO SCH (08:35)
[2023-02-17] MEDS: SENNOSIDES 8.6 MG TAB PO SCH (08:35)
[2023-02-17] MEDS ORDERED: LIDOCAINE HCL 1% LOCAL INJ 20 ML VIAL ONE (12:08)
[2023-02-17 14:31] LABS: HEMATOCRIT 32.1 % (38.2-49.6); HEMOGLOBIN 9.2 g/dL (14.0-18.0)
[2023-02-17 14:39] LABS: INR 1.49; PROTHROMBIN TIME 18.5 seconds (11.9-14.5)
[2023-02-17 14:40] LABS: PARTIAL THROMBOPLASTIN TIME 48.8 seconds (23.8-35.5)
[2023-02-17] MEDS ORDERED: ENOXAPARIN SOD INJ 40 MG/0.4 ML SYR SC SCH (17:00)
[2023-02-17] MEDS: CARBAMIDE PEROXIDE 15 ML BTL OT SCH (17:51)
[2023-02-18] VITALS (8 sets, daily range): BP systolic 134–147; BP diastolic 64–81
[2023-02-18] MEDS: SODIUM CHLORIDE 0.9% 1000ML 1,000 ML IV SCH ×2 (05:07→16:38)
[2023-02-18] MEDS: INSULIN LISPRO 100 UNIT/1 ML 3ML VIAL SQ SCH ×4 (07:30→21:00)
[2023-02-18 07:46] LABS: ALBUMIN 2.5 g/dL (3.5-5.0); ALBUMIN/GLOBULIN RATIO 0.6 (0.8-2.0); ANION GAP 15.5 mmol/L (8-16); CALCIUM 7.8 mg/dL (8.4-10.2); CREATININE, SERUM 0.86 mg/dL (0.72-1.25); MAGNESIUM 1.9 MG/DL (1.3-2.1); POTASSIUM 3.5 mmol/L (3.5-5.1)
[2023-02-18] MEDS: SENNOSIDES 8.6 MG TAB PO SCH (09:52)
[2023-02-18] MEDS: DOCUSATE SODIUM 100 MG CAP PO SCH (09:52)
[2023-02-18] MEDS: CARBAMIDE PEROXIDE 15 ML BTL OT SCH ×2 (09:56→16:31)
[2023-02-18 11:17] LABS: BASOPHILS % 0.1 % (0.0-1.0); EOSINOPHILS % 0.2 % (0.0-6.0); HEMATOCRIT 28.4 % (38.2-49.6); HEMOGLOBIN 8.3 g/dL (14.0-18.0); LYMPHOCYTES # (AUTO) 0.6 (1.0-3.2); LYMPHOCYTES % 4.7 % (18.0-39.1); MEAN CORPUSCULAR HEMOGLOBIN 24.5 pg (28-32); MEAN CORPUSCULAR HGB CONC 29.2 g/dL (31-35); MEAN CORPUSCULAR VOLUME 83.8 fL (81-99); MONOCYTES % 15.7 % (4.4-11.3); NEUTROPHILS # (AUTO) 9.8 (2.1-6.9); PLATELET COUNT 266 x10e3/uL (140-360); RED BLOOD COUNT 3.39 x10e6/uL (4.3-5.7); RED CELL DISTRIBUTION WIDTH 22.5 % (11.7-14.4)
[2023-02-18 12:35] LABS: ANISOCYTOSIS SLIGHT; PLATELET ESTIMATE ADEQUATE; PLATELET MORPHOLOGY COMMENT NORMAL; RBC MORPHOLOGY COMMENT NORMAL
[2023-02-18 12:36] LABS: OVALOCYTES FEW; POIKILOCYTOSIS SLIGHT
[2023-02-18] MEDS: MEROPENEM 1 GM in SODIUM CHLORIDE 0.9% 100 ML IV SCH ×2 (13:08→21:25)
[2023-02-18] MEDS ORDERED: MICAFUNGIN SODIUM 100 MG IV SCH (13:15)
[2023-02-18] MEDS ORDERED: MEROPENEM 1 GM in SODIUM CHLORIDE 0.9% 100 ML IV SCH (14:00)
[2023-02-18] MEDS: MICAFUNGIN SODIUM 100 MG in SODIUM CHLORIDE 0.9% 100 ML IV SCH (14:30)
[2023-02-19] VITALS (8 sets, daily range): BP systolic 139–156; BP diastolic 58–82
[2023-02-19] MEDS: MEROPENEM 1 GM in SODIUM CHLORIDE 0.9% 100 ML IV SCH ×3 (05:35→21:16)
[2023-02-19 06:55] LABS: ALBUMIN 2.4 g/dL (3.5-5.0); ALBUMIN/GLOBULIN RATIO 0.6 (0.8-2.0); ANION GAP 15.4 mmol/L (8-16); CALCIUM 7.9 mg/dL (8.4-10.2); CREATININE, SERUM 0.88 mg/dL (0.72-1.25); MAGNESIUM 1.8 MG/DL (1.3-2.1); POTASSIUM 3.4 mmol/L (3.5-5.1)
[2023-02-19] MEDS: INSULIN LISPRO 100 UNIT/1 ML 3ML VIAL SQ SCH ×4 (07:30→21:00)
[2023-02-19] MEDS: SODIUM CHLORIDE 0.9% 1000ML 1,000 ML IV SCH ×2 (08:50→21:03)
[2023-02-19] MEDS: CARBAMIDE PEROXIDE 15 ML BTL OT SCH ×2 (08:50→16:44)
[2023-02-19] MEDS: DOCUSATE SODIUM 100 MG CAP PO SCH (08:52)
[2023-02-19] MEDS: SENNOSIDES 8.6 MG TAB PO SCH (08:52)
[2023-02-19] MEDS ORDERED: POTASSIUM CHLORIDE 20 MEQ TAB CR PO ONE (10:00)
[2023-02-19 10:33] LABS: BASOPHILS % 0.2 % (0.0-1.0); EOSINOPHILS % 0.3 % (0.0-6.0); HEMATOCRIT 22.1 % (38.2-49.6); LYMPHOCYTES # (AUTO) 0.6 (1.0-3.2); LYMPHOCYTES % 6.7 % (18.0-39.1); MEAN CORPUSCULAR HEMOGLOBIN 23.8 pg (28-32); MEAN CORPUSCULAR VOLUME 82.2 fL (81-99); MONOCYTES # (AUTO) 0.6 (0.2-0.8); MONOCYTES % 6.7 % (4.4-11.3); NEUTROPHILS # (AUTO) 7.8 (2.1-6.9); NEUTROPHILS % 85.3 % (38.7-80.0); PLATELET COUNT 306 x10e3/uL (140-360); RED BLOOD COUNT 2.69 x10e6/uL (4.3-5.7); RED CELL DISTRIBUTION WIDTH 21.9 % (11.7-14.4)
[2023-02-19 10:35] LABS: HEMOGLOBIN 6.4 g/dL (14.0-18.0)
[2023-02-19] MEDS ORDERED: SODIUM CHLORIDE 0.9% 250ML 250 ML IV ONE (11:30)
[2023-02-19 11:43] LABS: LYMPHOCYTES % (MANUAL) 8 % (19-48); MONOCYTES % (MANUAL) 9 % (3.4-9.0); NEUTROPHILS % (MANUAL) 82 % (40-74); PLATELET ESTIMATE ADEQUATE; PLATELET MORPHOLOGY COMMENT NORMAL
[2023-02-19] MEDS: MICAFUNGIN SODIUM 100 MG in SODIUM CHLORIDE 0.9% 100 ML IV SCH (14:44)
[2023-02-20] VITALS (9 sets, daily range): BP systolic 137–166; BP diastolic 64–73
[2023-02-20] MEDS: MEROPENEM 1 GM in SODIUM CHLORIDE 0.9% 100 ML IV SCH ×3 (05:30→21:06)
[2023-02-20 06:34] LABS: BASOPHILS % 0.4 % (0.0-1.0); EOSINOPHILS # (AUTO) 0.1 (0.0-0.4); EOSINOPHILS % 0.7 % (0.0-6.0); HEMATOCRIT 27.9 % (38.2-49.6); HEMOGLOBIN 8.5 g/dL (14.0-18.0); LYMPHOCYTES # (AUTO) 0.8 (1.0-3.2); LYMPHOCYTES % 8.1 % (18.0-39.1); MEAN CORPUSCULAR HEMOGLOBIN 24.8 pg (28-32); MEAN CORPUSCULAR HGB CONC 30.5 g/dL (31-35); MEAN CORPUSCULAR VOLUME 81.3 fL (81-99); MONOCYTES # (AUTO) 0.8 (0.2-0.8); MONOCYTES % 8.1 % (4.4-11.3); NEUTROPHILS # (AUTO) 8.3 (2.1-6.9); NEUTROPHILS % 81.7 % (38.7-80.0); PLATELET COUNT 303 x10e3/uL (140-360); RED BLOOD COUNT 3.43 x10e6/uL (4.3-5.7); RED CELL DISTRIBUTION WIDTH 19.8 % (11.7-14.4)
[2023-02-20 07:01] LABS: ALBUMIN 2.4 g/dL (3.5-5.0); ALBUMIN/GLOBULIN RATIO 0.6 (0.8-2.0); ANION GAP 13.7 mmol/L (8-16); CALCIUM 7.9 mg/dL (8.4-10.2); CREATININE, SERUM 0.8 mg/dL (0.72-1.25); MAGNESIUM 1.9 MG/DL (1.3-2.1); POTASSIUM 3.7 mmol/L (3.5-5.1)
[2023-02-20] MEDS: INSULIN LISPRO 100 UNIT/1 ML 3ML VIAL SQ SCH ×4 (07:30→21:00)
[2023-02-20] MEDS: CARBAMIDE PEROXIDE 15 ML BTL OT SCH ×2 (09:00→16:40)
[2023-02-20] MEDS: DOCUSATE SODIUM 100 MG CAP PO SCH (09:00)
[2023-02-20] MEDS: SENNOSIDES 8.6 MG TAB PO SCH (09:00)
[2023-02-20 09:20] LABS: BASOPHILS % 0.2 % (0.0-1.0); EOSINOPHILS # (AUTO) 0.1 (0.0-0.4); EOSINOPHILS % 0.7 % (0.0-6.0); HEMATOCRIT 30.7 % (38.2-49.6); HEMOGLOBIN 9.3 g/dL (14.0-18.0); LYMPHOCYTES # (AUTO) 0.8 (1.0-3.2); LYMPHOCYTES % 7.9 % (18.0-39.1); MEAN CORPUSCULAR HEMOGLOBIN 24.7 pg (28-32); MEAN CORPUSCULAR HGB CONC 30.3 g/dL (31-35); MEAN CORPUSCULAR VOLUME 81.6 fL (81-99); MONOCYTES # (AUTO) 0.7 (0.2-0.8); MONOCYTES % 7.3 % (4.4-11.3); NEUTROPHILS % 82.8 % (38.7-80.0); PLATELET COUNT 311 x10e3/uL (140-360); RED BLOOD COUNT 3.76 x10e6/uL (4.3-5.7); RED CELL DISTRIBUTION WIDTH 19.9 % (11.7-14.4)
[2023-02-20] MEDS: LABETALOL HCL 5 MG/ML 20ML VIAL IV PRN (12:52)
[2023-02-20] MEDS ORDERED: ONDANSETRON HCL 4 MG ORAL DISINTEGRATING TAB SL PRN (13:30)
[2023-02-20] MEDS: MICAFUNGIN SODIUM 100 MG in SODIUM CHLORIDE 0.9% 100 ML IV SCH (14:22)
[2023-02-20] MEDS: SODIUM CHLORIDE 0.9% 1000ML 1,000 ML IV SCH (14:24)
[2023-02-20] MEDS: LOSARTAN POTASSIUM 25 MG TAB PO SCH (14:47)
[2023-02-21] VITALS (7 sets, daily range): BP systolic 148–165; BP diastolic 70–80
[2023-02-21] MEDS: SODIUM CHLORIDE 0.9% 1000ML 1,000 ML IV SCH ×2 (04:38→17:56)
[2023-02-21] MEDS: MEROPENEM 1 GM in SODIUM CHLORIDE 0.9% 100 ML IV SCH ×3 (06:01→22:52)
[2023-02-21 06:22] LABS: BASOPHILS % 0.4 % (0.0-1.0); EOSINOPHILS # (AUTO) 0.1 (0.0-0.4); HEMATOCRIT 29.9 % (38.2-49.6); HEMOGLOBIN 9.1 g/dL (14.0-18.0); LYMPHOCYTES # (AUTO) 1.1 (1.0-3.2); LYMPHOCYTES % 11.2 % (18.0-39.1); MEAN CORPUSCULAR HEMOGLOBIN 24.7 pg (28-32); MEAN CORPUSCULAR HGB CONC 30.4 g/dL (31-35); MONOCYTES # (AUTO) 0.7 (0.2-0.8); MONOCYTES % 7.9 % (4.4-11.3); NEUTROPHILS # (AUTO) 7.3 (2.1-6.9); NEUTROPHILS % 77.6 % (38.7-80.0); PLATELET COUNT 329 x10e3/uL (140-360); RED BLOOD COUNT 3.69 x10e6/uL (4.3-5.7); RED CELL DISTRIBUTION WIDTH 19.5 % (11.7-14.4)
[2023-02-21 06:44] LABS: ALBUMIN 2.7 g/dL (3.5-5.0); ALBUMIN/GLOBULIN RATIO 0.7 (0.8-2.0); ANION GAP 13.8 mmol/L (8-16); CALCIUM 8.2 mg/dL (8.4-10.2); CREATININE, SERUM 0.73 mg/dL (0.72-1.25); MAGNESIUM 1.8 MG/DL (1.3-2.1); POTASSIUM 3.8 mmol/L (3.5-5.1)
[2023-02-21] MEDS: INSULIN LISPRO 100 UNIT/1 ML 3ML VIAL SQ SCH ×4 (07:30→20:48)
[2023-02-21] MEDS: LOSARTAN POTASSIUM 25 MG TAB PO SCH (08:25)
[2023-02-21] MEDS: SENNOSIDES 8.6 MG TAB PO SCH (08:26)
[2023-02-21] MEDS: DOCUSATE SODIUM 100 MG CAP PO SCH (08:26)
[2023-02-21] MEDS: CARBAMIDE PEROXIDE 15 ML BTL OT SCH ×2 (08:26→16:37)
[2023-02-21] MEDS: LABETALOL HCL 5 MG/ML 20ML VIAL IV PRN (12:41)
[2023-02-21] MEDS: MICAFUNGIN SODIUM 100 MG in SODIUM CHLORIDE 0.9% 100 ML IV SCH (13:01)
[2023-02-22] VITALS (8 sets, daily range): BP systolic 148–167; BP diastolic 62–74
[2023-02-22] MEDS: MEROPENEM 1 GM in SODIUM CHLORIDE 0.9% 100 ML IV SCH ×3 (05:28→21:22)
[2023-02-22] MEDS: SODIUM CHLORIDE 0.9% 1000ML 1,000 ML IV SCH ×2 (05:31→15:46)
[2023-02-22] MEDS: INSULIN LISPRO 100 UNIT/1 ML 3ML VIAL SQ SCH ×4 (07:30→20:38)
[2023-02-22] MEDS: DOCUSATE SODIUM 100 MG CAP PO SCH (08:33)
[2023-02-22] MEDS: LOSARTAN POTASSIUM 25 MG TAB PO SCH (08:33)
[2023-02-22] MEDS: SENNOSIDES 8.6 MG TAB PO SCH (08:34)
[2023-02-22] MEDS: CARBAMIDE PEROXIDE 15 ML BTL OT SCH ×2 (08:36→16:13)
[2023-02-22] MEDS ORDERED: LOSARTAN POTASSIUM 25 MG TAB PO ONE (09:30)
[2023-02-22 10:22] LABS: BASOPHILS # (AUTO) 0.1 (0.0-0.1); BASOPHILS % 0.6 % (0.0-1.0); EOSINOPHILS # (AUTO) 0.1 (0.0-0.4); EOSINOPHILS % 1.4 % (0.0-6.0); HEMATOCRIT 28.6 % (38.2-49.6); HEMOGLOBIN 8.6 g/dL (14.0-18.0); LYMPHOCYTES # (AUTO) 1.2 (1.0-3.2); LYMPHOCYTES % 13.3 % (18.0-39.1); MEAN CORPUSCULAR HEMOGLOBIN 24.8 pg (28-32); MEAN CORPUSCULAR HGB CONC 30.1 g/dL (31-35); MEAN CORPUSCULAR VOLUME 82.4 fL (81-99); MONOCYTES # (AUTO) 0.8 (0.2-0.8); MONOCYTES % 8.7 % (4.4-11.3); NEUTROPHILS # (AUTO) 6.7 (2.1-6.9); NEUTROPHILS % 74.6 % (38.7-80.0); PLATELET COUNT 329 x10e3/uL (140-360); RED BLOOD COUNT 3.47 x10e6/uL (4.3-5.7); RED CELL DISTRIBUTION WIDTH 19.8 % (11.7-14.4)
[2023-02-22] MEDS: MICAFUNGIN SODIUM 100 MG in SODIUM CHLORIDE 0.9% 100 ML IV SCH (15:05)
[2023-02-23 00:13] VITALS: BP 149/71
[2023-02-23 04:00] VITALS: BP 141/60
[2023-02-23] MEDS: SODIUM CHLORIDE 0.9% 1000ML 1,000 ML IV SCH ×2 (04:13→12:22)
[2023-02-23] MEDS: MEROPENEM 1 GM in SODIUM CHLORIDE 0.9% 100 ML IV SCH (05:24)
[2023-02-23 06:10] LABS: BASOPHILS % 0.4 % (0.0-1.0); EOSINOPHILS # (AUTO) 0.2 (0.0-0.4); EOSINOPHILS % 2.4 % (0.0-6.0); LYMPHOCYTES # (AUTO) 1.2 (1.0-3.2); LYMPHOCYTES % 16.7 % (18.0-39.1); MEAN CORPUSCULAR HEMOGLOBIN 24.6 pg (28-32); MEAN CORPUSCULAR HGB CONC 30.8 g/dL (31-35); MONOCYTES # (AUTO) 0.8 (0.2-0.8); MONOCYTES % 11.5 % (4.4-11.3); NEUTROPHILS # (AUTO) 4.9 (2.1-6.9); NEUTROPHILS % 67.6 % (38.7-80.0); PLATELET COUNT 345 x10e3/uL (140-360); RED BLOOD COUNT 3.25 x10e6/uL (4.3-5.7); RED CELL DISTRIBUTION WIDTH 19.7 % (11.7-14.4)
[2023-02-23 06:35] LABS: ALBUMIN 2.4 g/dL (3.5-5.0); ALBUMIN/GLOBULIN RATIO 0.6 (0.8-2.0); ANION GAP 12.7 mmol/L (8-16); CREATININE, SERUM 0.66 mg/dL (0.72-1.25); MAGNESIUM 1.6 MG/DL (1.3-2.1); POTASSIUM 3.7 mmol/L (3.5-5.1)
[2023-02-23] MEDS: INSULIN LISPRO 100 UNIT/1 ML 3ML VIAL SQ SCH ×2 (07:30→11:30)
[2023-02-23 08:26] VITALS: BP 141/60
[2023-02-23] MEDS: SENNOSIDES 8.6 MG TAB PO SCH (08:27)
[2023-02-23] MEDS: DOCUSATE SODIUM 100 MG CAP PO SCH (08:28)
[2023-02-23] MEDS: CARBAMIDE PEROXIDE 15 ML BTL OT SCH (08:34)
[2023-02-23] MEDS ORDERED: COZAAR100 MG PO (08:45)
[2023-02-23] MEDS ORDERED: MICAFUNGIN100 MG IV (08:45)
[2023-02-23] MEDS ORDERED: LOSARTAN POTASSIUM 100 MG TAB PO SCH (09:00)
[2023-02-23 09:24] VITALS: BP 148/70
[2023-02-23 11:57] VITALS: BP 135/68
== END 2023-02-23 14:13 | DRG 698 ==
LOC: ER 12:14 → ERHOLD 13:33 → MED/SURG3 18:15 → OBSVTOIN 02-17 09:41
PROVIDERS: ADMIT Internal Medicine; ATTEND Internal Medicine
PROC: 02HV33Z Insertion of Infusion Device into Superior Vena Cava, Percutaneous Approach (ICD-10-PCS; principal; 2023-02-17)
PROC: 0JPW3XZ Removal of Tunneled Vascular Access Device from Lower Extremity Subcutaneous Tissue and Fascia, Percutaneous Approach (ICD-10-PCS; 2023-02-17)
PROC: 30243N1 Transfusion of Nonautologous Red Blood Cells into Central Vein, Percutaneous Approach (ICD-10-PCS; 2023-02-17)
DX: T83.510A Infection and inflammatory reaction due to cystostomy catheter, initial encounter (principal); A41.9 Sepsis, unspecified organism; L89.893 Pressure ulcer of other site, stage 3; G82.50 Quadriplegia, unspecified; R65.20 Severe sepsis without septic shock; G93.40 Encephalopathy, unspecified; B37.49 Other urogenital candidiasis; M62.82 Rhabdomyolysis; M86.8X6 Other osteomyelitis, lower leg; E11.40 Type 2 diabetes mellitus with diabetic neuropathy, unspecified; Z79.4 Long term (current) use of insulin; N40.1 Benign prostatic hyperplasia with lower urinary tract symptoms; R33.8 Other retention of urine; Z74.01 Bed confinement status; M10.9 Gout, unspecified; Z93.3 Colostomy status; D64.9 Anemia, unspecified; Z98.890 Other specified postprocedural states; B35.1 Tinea unguium; L89.159 Pressure ulcer of sacral region, unspecified stage; E11.69 Type 2 diabetes mellitus with other specified complication; Z93.6 Other artificial openings of urinary tract status; E11.51 Type 2 diabetes mellitus with diabetic peripheral angiopathy without gangrene; D63.8 Anemia in other chronic diseases classified elsewhere; B96.20 Unspecified Escherichia coli [E. coli] as the cause of diseases classified elsewhere; N30.90 Cystitis, unspecified without hematuria; Z66 Do not resuscitate
CPT/HCPCS: 0223U; 36415; 36569; 36589; 71045; 74470; 80053; 81001; 82607; 82728; 82746; 82948; 83036; 83540; 83605; 83735; 84443; 84466; 85014; 85018; 85025; 85610; 85730; 86850; 86900; 86920; 87040; 87070; 87071; 87086; 87186; 87205; 94799; 99252; 99284; G0378; J0692; J2001; J2185; J2248; J2270; J2405; J7030; J7050; P9016

== ENCOUNTER 2023-05-09 17:19 | Emergency (ER) | payer MEDICARE, OTHER ==
[~2023-05-09] VITALS: Ht 167.6 cm; Wt 100.2 kg
[~2023-05-09 17:19] MED LIST changes: +ASPIRIN CHEW81 MG PO; +CHOLECALCIFEROL1 GM PO; +COZAAR100 MG PO; +FLOMAX0.4 MG PO; +JUVEN PACKET1 EACH PO; +MICAFUNGIN100 MG IV; +MYLANTA MAXIMUM10 ML PO; +SENOKOT-S TABL1 EACH PO; +TEARS LUBRICANT15 ML OU; +VITAMIN C500 MG PO; +XALATAN2.5 ML OU
[2023-05-09] MEDS ORDERED: LIDOCAINE JELLY 2% 10ML URO-JET ONE (17:33)
[2023-05-09] MEDS ORDERED: LIDOCAINE JELLY 2% 10ML URO-JET TOP ONE (17:45)
[2023-05-09 20:28] VITALS: BP 129/84; PULSE 64; RESP 18; TEMP 98.3; O2SAT 99
== END 2023-05-09 19:50 ==
LOC: ER 17:34
DX: Z46.6 Encounter for fitting and adjustment of urinary device (principal); I10 Essential (primary) hypertension; E11.9 Type 2 diabetes mellitus without complications; D64.9 Anemia, unspecified; N28.9 Disorder of kidney and ureter, unspecified; L89.159 Pressure ulcer of sacral region, unspecified stage; G82.50 Quadriplegia, unspecified; Z93.3 Colostomy status
CPT/HCPCS: 51700; 99283

== ENCOUNTER 2024-01-27 17:19 | Inpatient (IN) | payer MEDICARE, OTHER ==
[2024-01-27] VITALS (15 sets, daily range): BP systolic 62–123; BP diastolic 38–58; PULSE 87–102; RESP 13–23; TEMP 98.8; O2SAT 88–100
[~2024-01-27] VITALS: Ht 167.6 cm; Wt 77.3 kg
[2024-01-27] MEDS ORDERED: SODIUM CHLORIDE 0.9% 100 ML ONE (17:50)
[2024-01-27] MEDS ORDERED: MEROPENEM 1 GM VIAL ONE (17:50)
[2024-01-27] MEDS: ACETAMINOPHEN 1000 MG/100 ML IV STA (17:50)
[2024-01-27] MEDS ORDERED: SODIUM CHLORIDE 0.9% 1000ML 1,000 ML ONE (17:51)
[2024-01-27] MEDS: SODIUM CHLORIDE 0.9% 1000ML 1,000 ML IV STA (17:51)
[2024-01-27] MEDS ORDERED: SODIUM CHLORIDE 0.9% 250ML 250 ML ONE (17:51)
[2024-01-27] MEDS ORDERED: Vancomycin IV 1 GM VIAL ONE (17:51)
[2024-01-27] MEDS ORDERED: ACETAMINOPHEN 1000 MG/100 ML 100 ML IV ONE (17:51)
[2024-01-27] MEDS: MEROPENEM 1 GM in SODIUM CHLORIDE 0.9% 100 ML IV ONE (17:52)
[2024-01-27 18:08] LABS: EOSINOPHILS # (AUTO) 0.1 (0.0-0.4); EOSINOPHILS % 1.8 % (0.0-6.0); HEMATOCRIT 18.7 % (38.2-49.6); LYMPHOCYTES # (AUTO) 1.2 (1.0-3.2); MEAN CORPUSCULAR HEMOGLOBIN 24.6 pg (28-32); MEAN CORPUSCULAR HGB CONC 30.5 g/dL (31-35); MEAN CORPUSCULAR VOLUME 80.6 fL (81-99); MONOCYTES # (AUTO) 1.2 (0.2-0.8); MONOCYTES % 23.4 % (4.4-11.3); NEUTROPHILS # (AUTO) 2.6 (2.1-6.9); NEUTROPHILS % 50.8 % (38.7-80.0); PLATELET COUNT 177 x10e3/uL (140-360); RED BLOOD COUNT 2.32 x10e6/uL (4.3-5.7); RED CELL DISTRIBUTION WIDTH 21.6 % (11.7-14.4); WHITE BLOOD COUNT 5.09 x10e3/uL (4.8-10.8)
[2024-01-27 18:19] LABS: HEMOGLOBIN 5.7 g/dL (14.0-18.0)
[2024-01-27 18:22] LABS: INR 1.54; PROTHROMBIN TIME 18.8 seconds (11.9-14.5)
[2024-01-27 18:23] LABS: PARTIAL THROMBOPLASTIN TIME 50.8 seconds (23.8-35.5)
[2024-01-27 18:33] LABS: ALANINE AMINOTRANSFERASE 34 IU/L (0-55); ALBUMIN 2.7 g/dL (3.5-5.0); ALBUMIN/GLOBULIN RATIO 0.9 (0.8-2.0); ALKALINE PHOSPHATASE 59 IU/L (40-150); ANION GAP 14.1 mmol/L (8-16); BILIRUBIN,TOTAL 0.6 mg/dL (0.2-1.2); BLOOD UREA NITROGEN 52 mg/dL (7-26); BUN/CREATININE RATIO 25 (6-25); CALCIUM 8.2 mg/dL (8.4-10.2); CARBON DIOXIDE 23 mmol/L (22-29); CHLORIDE 102 mmol/L (98-107); CREATINE KINASE 136 IU/L (30-200); CREATININE, SERUM 2.05 mg/dL (0.72-1.25); EST GLOMERULAR FILTRATION RATE 36 ML/MIN (>=60); GLUCOSE 89 mg/dL (74-118); LIPASE 85 U/L (8-78); MAGNESIUM 1.9 MG/DL (1.3-2.1); POTASSIUM 4.1 mmol/L (3.5-5.1); SODIUM 135 mmol/L (136-145); TOTAL PROTEIN 5.8 g/dL (6.5-8.1)
[2024-01-27] MEDS: Vancomycin IV 1 GM in SODIUM CHLORIDE 0.9% 250ML 250 ML IV ONE (18:45)
[2024-01-27] MEDS: SODIUM CHLORIDE 0.9% 1000ML 1,000 ML IV ONE ×2 (18:51)
[2024-01-27 18:57] LABS: TROPONIN I < 0.05 ng/mL (0.0-0.40)
[2024-01-27 19:37] LABS: BILIRUBIN,URINE NEGATIVE (NEGATIVE); CLARITY,URINE TURBID (CLEAR); COLOR,URINE YELLOW (YELLOW); GLUCOSE, URINE NEGATIVE (NEGATIVE); KETONES,URINE NEGATIVE (NEGATIVE); LEUKOCYTE ESTERASE ,URINE LARGE (NEGATIVE); NITRITE,URINE NEGATIVE (NEGATIVE); PH,URINE 7 (5 - 7); PROTEIN,URINE DIPSTICK 2+ (NEGATIVE); URINE UROBILINOGEN 1 mg/dL (0.2 - 1)
[2024-01-27 19:43] LABS: BACTERIA,URINE MANY /HPF; EPITHELIAL CELLS,URINE FEW /LPF; WBC,URINE (MAN) >50 /HPF (0-5)
[2024-01-27 19:44] LABS: CALCIUM OXALATE CRYSTALS,UR FEW (FEW); YEAST,URINE MODERATE
[2024-01-27] MEDS ORDERED: SODIUM CHLORIDE FLUSH 10 ML SYR INJ PRN (20:15)
[2024-01-27] MEDS ORDERED: MICAFUNGIN SODIUM 50 MG IV ONE (20:15)
[2024-01-27] MEDS: ARTIFICIAL TEARS (OPTH) 15 ML BTL OU SCH (21:00)
[2024-01-27] MEDS: BACLOFEN 10 MG TAB PO SCH (21:00)
[2024-01-27] MEDS: MEROPENEM 1 GM in SODIUM CHLORIDE 0.9% 100 ML IV SCH (21:13)
[2024-01-27] MEDS: SODIUM CHLORIDE 0.9% 250ML 250 ML IV ONE (21:14)
[2024-01-27] MEDS: VASOPRESSIN 60 UNIT in DEXTROSE 5% 50ML 50 ML IV SCH (21:14)
[2024-01-27] MEDS: MICAFUNGIN SODIUM IV ONE (22:00)
[2024-01-27] MEDS: DEXTROSE 5% IV ONE (22:00)
[2024-01-27 22:47] LABS: TROPONIN I 0.057 ng/mL (0-0.300)
[2024-01-28] VITALS (64 sets, daily range): BP systolic 80–145; BP diastolic 35–101; PULSE 81–106; RESP 11–24; TEMP 97.1–99.5; O2SAT 58–100
[2024-01-28 06:39] LABS: BASOPHILS % 0.4 % (0.0-1.0); EOSINOPHILS # (AUTO) 0.2 (0.0-0.4); EOSINOPHILS % 3.1 % (0.0-6.0); HEMATOCRIT 21.5 % (38.2-49.6); LYMPHOCYTES # (AUTO) 0.7 (1.0-3.2); LYMPHOCYTES % 14.1 % (18.0-39.1); MEAN CORPUSCULAR HEMOGLOBIN 24.3 pg (28-32); MEAN CORPUSCULAR HGB CONC 28.8 g/dL (31-35); MEAN CORPUSCULAR VOLUME 84.3 fL (81-99); MONOCYTES # (AUTO) 1.1 (0.2-0.8); MONOCYTES % 22.1 % (4.4-11.3); NEUTROPHILS # (AUTO) 3.1 (2.1-6.9); NEUTROPHILS % 59.9 % (38.7-80.0); PLATELET COUNT 170 x10e3/uL (140-360); RED BLOOD COUNT 2.55 x10e6/uL (4.3-5.7); RED CELL DISTRIBUTION WIDTH 21.1 % (11.7-14.4); WHITE BLOOD COUNT 5.12 x10e3/uL (4.8-10.8)
[2024-01-28 06:41] LABS: HEMOGLOBIN 6.2 g/dL (14.0-18.0)
[2024-01-28 06:52] LABS: ALBUMIN 2.6 g/dL (3.5-5.0); ALBUMIN/GLOBULIN RATIO 0.8 (0.8-2.0); ANION GAP 14.7 mmol/L (8-16); BILIRUBIN,TOTAL 0.7 mg/dL (0.2-1.2); CALCIUM 8.2 mg/dL (8.4-10.2); CREATININE, SERUM 1.52 mg/dL (0.72-1.25); POTASSIUM 3.7 mmol/L (3.5-5.1)
[2024-01-28 07:15] LABS: TROPONIN I 0.041 ng/mL (0-0.300)
[2024-01-28] MEDS: MULTIVITAMINS/MINERALS TAB PO SCH (08:11)
[2024-01-28] MEDS: SENNA-S TABLET PO SCH (08:11)
[2024-01-28] MEDS: ZINC SULFATE 50 MG CAP PO SCH (08:11)
[2024-01-28] MEDS: DOCUSATE SODIUM 100 MG CAP PO SCH (08:11)
[2024-01-28] MEDS: ASCORBIC ACID 500 MG TAB PO SCH (08:11)
[2024-01-28 10:14] LABS: FERRITIN 1186.08 ng/mL (21.81-274.66)
[2024-01-28 10:51] LABS: AMPHETAMINES SCREEN,URINE NEGATIVE (NEGATIVE); BENZODIAZEPINES SCREEN,URINE NEGATIVE (NEGATIVE); CANNABINOIDS SCREEN,URINE NEGATIVE (NEGATIVE); METHADONE SCREEN, URINE NEGATIVE (NEGATIVE); OPIATES SCREEN,URINE POSITIVE (NEGATIVE); PHENCYCLIDINE SCREEN,URINE NEGATIVE (NEGATIVE)
[2024-01-28] MEDS: NALOXONE HCL INJ 0.4 MG/ML AMP IV PRN (12:48)
[2024-01-28] MEDS: NALOXONE HCL 2MG/2 ML SYRINGE IV ONE (12:51)
[2024-01-28] MEDS: LACTATED RINGER'S 1,000 ML INJ ONE (14:38)
[2024-01-28 19:12] LABS: BASOPHILS % 0.4 % (0.0-1.0); EOSINOPHILS # (AUTO) 0.1 (0.0-0.4); EOSINOPHILS % 2.5 % (0.0-6.0); HEMATOCRIT 33.9 % (38.2-49.6); HEMOGLOBIN 10.3 g/dL (14.0-18.0); LYMPHOCYTES # (AUTO) 0.4 (1.0-3.2); LYMPHOCYTES % 8.4 % (18.0-39.1); MEAN CORPUSCULAR HEMOGLOBIN 26.2 pg (28-32); MEAN CORPUSCULAR HGB CONC 30.4 g/dL (31-35); MEAN CORPUSCULAR VOLUME 86.3 fL (81-99); MONOCYTES # (AUTO) 0.9 (0.2-0.8); MONOCYTES % 17.9 % (4.4-11.3); NEUTROPHILS # (AUTO) 3.4 (2.1-6.9); NEUTROPHILS % 70.6 % (38.7-80.0); PLATELET COUNT 172 x10e3/uL (140-360); RED BLOOD COUNT 3.93 x10e6/uL (4.3-5.7); RED CELL DISTRIBUTION WIDTH 17.4 % (11.7-14.4); WHITE BLOOD COUNT 4.75 x10e3/uL (4.8-10.8)
[2024-01-28 19:17] LABS: TROPONIN I 0.028 ng/mL (0-0.300)
[2024-01-29] VITALS (52 sets, daily range): BP systolic 114–167; BP diastolic 58–92; PULSE 67–110; RESP 11–25; TEMP 97.3–98.4; O2SAT 99–100
[2024-01-29 06:52] LABS: BASOPHILS % 0.5 % (0.0-1.0); EOSINOPHILS # (AUTO) 0.1 (0.0-0.4); EOSINOPHILS % 2.4 % (0.0-6.0); HEMATOCRIT 32.7 % (38.2-49.6); LYMPHOCYTES # (AUTO) 0.4 (1.0-3.2); LYMPHOCYTES % 9.8 % (18.0-39.1); MEAN CORPUSCULAR HEMOGLOBIN 26.5 pg (28-32); MEAN CORPUSCULAR HGB CONC 30.6 g/dL (31-35); MEAN CORPUSCULAR VOLUME 86.7 fL (81-99); MONOCYTES # (AUTO) 0.8 (0.2-0.8); MONOCYTES % 17.9 % (4.4-11.3); NEUTROPHILS # (AUTO) 2.9 (2.1-6.9); NEUTROPHILS % 69.2 % (38.7-80.0); PLATELET COUNT 185 x10e3/uL (140-360); RED BLOOD COUNT 3.77 x10e6/uL (4.3-5.7); RED CELL DISTRIBUTION WIDTH 17.6 % (11.7-14.4); WHITE BLOOD COUNT 4.18 x10e3/uL (4.8-10.8)
[2024-01-29 07:34] LABS: ALBUMIN 2.9 g/dL (3.5-5.0); ALBUMIN/GLOBULIN RATIO 0.8 (0.8-2.0); ANION GAP 17.7 mmol/L (8-16); BILIRUBIN,TOTAL 0.9 mg/dL (0.2-1.2); CALCIUM 8.8 mg/dL (8.4-10.2); CREATININE, SERUM 1.07 mg/dL (0.72-1.25); POTASSIUM 3.7 mmol/L (3.5-5.1); TOTAL PROTEIN 6.7 g/dL (6.5-8.1)
[2024-01-29] MEDS ORDERED: MEROPENEM 1 GM VIAL ONE (10:27)
[2024-01-29] MEDS: HYDROCODONE/APAP 10MG-325MG TAB PO PRN (12:19)
[2024-01-29] MEDS: VASOPRESSIN 60 UNIT in DEXTROSE 5% 50ML 57 ML IV SCH (13:15)
[2024-01-29] MEDS: FUROSEMIDE INJ 10 MG/ML 2 ML VIAL IV ONE (19:51)
[2024-01-30] VITALS (53 sets, daily range): BP systolic 106–156; BP diastolic 54–90; PULSE 49–96; RESP 11–23; TEMP 97.3–98.1; O2SAT 97–100
[2024-01-30 06:30] LABS: BASOPHILS % 0.2 % (0.0-1.0); EOSINOPHILS # (AUTO) 0.1 (0.0-0.4); LYMPHOCYTES # (AUTO) 0.4 (1.0-3.2); LYMPHOCYTES % 9.8 % (18.0-39.1); MEAN CORPUSCULAR HEMOGLOBIN 26.3 pg (28-32); MEAN CORPUSCULAR HGB CONC 31.3 g/dL (31-35); MEAN CORPUSCULAR VOLUME 84.2 fL (81-99); MONOCYTES # (AUTO) 0.5 (0.2-0.8); NEUTROPHILS # (AUTO) 3.1 (2.1-6.9); NEUTROPHILS % 75.8 % (38.7-80.0); PLATELET COUNT 249 x10e3/uL (140-360); RED CELL DISTRIBUTION WIDTH 17.8 % (11.7-14.4); WHITE BLOOD COUNT 4.08 x10e3/uL (4.8-10.8)
[2024-01-30 06:59] LABS: ALBUMIN 2.9 g/dL (3.5-5.0); ALBUMIN/GLOBULIN RATIO 0.8 (0.8-2.0); ANION GAP 16.4 mmol/L (8-16); BILIRUBIN,TOTAL 0.7 mg/dL (0.2-1.2); CALCIUM 9.1 mg/dL (8.4-10.2); CREATININE, SERUM 0.89 mg/dL (0.72-1.25); MAGNESIUM 1.8 MG/DL (1.3-2.1); TOTAL PROTEIN 6.7 g/dL (6.5-8.1)
[2024-01-30 07:02] LABS: POTASSIUM 3.4 mmol/L (3.5-5.1)
[2024-01-30] MEDS: POTASSIUM CHLORIDE 20 MEQ TAB CR PO ONE (11:01)
[2024-01-30] MEDS: FUROSEMIDE INJ 10 MG/ML 2 ML VIAL IV SCH (11:01)
[2024-01-30] MEDS: FLUCONAZOLE 100 MG TAB PO SCH (11:01)
[2024-01-30] MEDS: MAGNESIUM SULFATE 2GM/50ML 50 ML IV ONE (11:03)
[2024-01-30 19:18] LABS: INR 1.34; PROTHROMBIN TIME 16.8 seconds (11.9-14.5)
[2024-01-30 19:19] LABS: PARTIAL THROMBOPLASTIN TIME 44.7 seconds (23.8-35.5)
[2024-01-31] VITALS (22 sets, daily range): BP systolic 106–166; BP diastolic 56–114; PULSE 38–119; RESP 9–22; TEMP 97.3–97.9; O2SAT 99–100
[2024-01-31] MEDS: AMIODARONE HCL 150 MG/100 ML BAG IV ONE (04:07)
[2024-01-31] MEDS: AMIODARONE 900MG 900 MG in Premix Bag 1 BAG IV SCH (04:22)
[2024-01-31] MEDS: AMIODARONE 900MG 500 ML IV ONE (04:51)
[2024-01-31 06:19] LABS: BASOPHILS % 0.6 % (0.0-1.0); EOSINOPHILS # (AUTO) 0.1 (0.0-0.4); EOSINOPHILS % 1.9 % (0.0-6.0); HEMATOCRIT 33.1 % (38.2-49.6); HEMOGLOBIN 10.5 g/dL (14.0-18.0); LYMPHOCYTES # (AUTO) 0.5 (1.0-3.2); LYMPHOCYTES % 10.8 % (18.0-39.1); MEAN CORPUSCULAR HEMOGLOBIN 26.5 pg (28-32); MEAN CORPUSCULAR HGB CONC 31.7 g/dL (31-35); MEAN CORPUSCULAR VOLUME 83.6 fL (81-99); MONOCYTES # (AUTO) 0.9 (0.2-0.8); NEUTROPHILS # (AUTO) 3.3 (2.1-6.9); NEUTROPHILS % 68.5 % (38.7-80.0); PLATELET COUNT 330 x10e3/uL (140-360); RED BLOOD COUNT 3.96 x10e6/uL (4.3-5.7); WHITE BLOOD COUNT 4.82 x10e3/uL (4.8-10.8)
[2024-01-31 06:35] LABS: ALBUMIN 2.9 g/dL (3.5-5.0); ALBUMIN/GLOBULIN RATIO 0.7 (0.8-2.0); ANION GAP 16.6 mmol/L (8-16); BILIRUBIN,TOTAL 0.6 mg/dL (0.2-1.2); CALCIUM 9.4 mg/dL (8.4-10.2); CREATININE, SERUM 0.85 mg/dL (0.72-1.25); MAGNESIUM 2.1 MG/DL (1.3-2.1); POTASSIUM 3.6 mmol/L (3.5-5.1); TOTAL PROTEIN 6.8 g/dL (6.5-8.1)
[2024-02-01] VITALS (15 sets, daily range): BP systolic 146–173; BP diastolic 59–98; PULSE 64–97; RESP 10–24; TEMP 97.8–98.6; O2SAT 100
[2024-02-01 06:32] LABS: BASOPHILS % 0.5 % (0.0-1.0); EOSINOPHILS # (AUTO) 0.1 (0.0-0.4); EOSINOPHILS % 2.5 % (0.0-6.0); HEMATOCRIT 33.4 % (38.2-49.6); HEMOGLOBIN 10.2 g/dL (14.0-18.0); LYMPHOCYTES # (AUTO) 0.6 (1.0-3.2); MEAN CORPUSCULAR HEMOGLOBIN 25.8 pg (28-32); MEAN CORPUSCULAR HGB CONC 30.5 g/dL (31-35); MEAN CORPUSCULAR VOLUME 84.6 fL (81-99); MONOCYTES # (AUTO) 0.7 (0.2-0.8); NEUTROPHILS # (AUTO) 2.9 (2.1-6.9); NEUTROPHILS % 66.3 % (38.7-80.0); PLATELET COUNT 405 x10e3/uL (140-360); RED BLOOD COUNT 3.95 x10e6/uL (4.3-5.7); WHITE BLOOD COUNT 4.43 x10e3/uL (4.8-10.8)
[2024-02-01 07:05] LABS: ALBUMIN 2.9 g/dL (3.5-5.0); ALBUMIN/GLOBULIN RATIO 0.8 (0.8-2.0); ANION GAP 15.7 mmol/L (8-16); BILIRUBIN,TOTAL 0.6 mg/dL (0.2-1.2); CALCIUM 9.1 mg/dL (8.4-10.2); CREATININE, SERUM 0.86 mg/dL (0.72-1.25); MAGNESIUM 1.9 MG/DL (1.3-2.1); POTASSIUM 3.7 mmol/L (3.5-5.1); TOTAL PROTEIN 6.7 g/dL (6.5-8.1)
[2024-02-01] MEDS ORDERED: APIXABAN 2.5 MG TABLET PO SCH (09:00)
[2024-02-01] MEDS: ENOXAPARIN SOD INJ 40 MG/0.4 ML SYR SC ONE (10:41)
[2024-02-01] MEDS: AMIODARONE HCL 200 MG TAB PO SCH (10:41)
[2024-02-01] MEDS: BALSAM PERU/CASTOR OIL 60 GM OINT...G. TP SCH (17:32)
[2024-02-01] MEDS: METOPROLOL SUCCINATE 25 MG TAB XL PO SCH (20:11)
[2024-02-02] VITALS (35 sets, daily range): BP systolic 86–169; BP diastolic 59–100; PULSE 73–128; RESP 4–20; TEMP 96.8–98.8; O2SAT 96–100
[2024-02-02 06:04] LABS: BASOPHILS # (AUTO) 0.1 (0.0-0.1); BASOPHILS % 0.8 % (0.0-1.0); EOSINOPHILS # (AUTO) 0.1 (0.0-0.4); HEMATOCRIT 31.8 % (38.2-49.6); HEMOGLOBIN 10.1 g/dL (14.0-18.0); LYMPHOCYTES % 16.3 % (18.0-39.1); MEAN CORPUSCULAR HEMOGLOBIN 26.5 pg (28-32); MEAN CORPUSCULAR HGB CONC 31.8 g/dL (31-35); MEAN CORPUSCULAR VOLUME 83.5 fL (81-99); MONOCYTES # (AUTO) 1.1 (0.2-0.8); MONOCYTES % 17.8 % (4.4-11.3); NEUTROPHILS # (AUTO) 3.7 (2.1-6.9); NEUTROPHILS % 62.1 % (38.7-80.0); PLATELET COUNT 430 x10e3/uL (140-360); RED BLOOD COUNT 3.81 x10e6/uL (4.3-5.7); RED CELL DISTRIBUTION WIDTH 18.1 % (11.7-14.4)
[2024-02-02 06:34] LABS: ALBUMIN 2.8 g/dL (3.5-5.0); ALBUMIN/GLOBULIN RATIO 0.7 (0.8-2.0); ANION GAP 13.8 mmol/L (8-16); BILIRUBIN,TOTAL 0.4 mg/dL (0.2-1.2); CALCIUM 9.3 mg/dL (8.4-10.2); CREATININE, SERUM 0.91 mg/dL (0.72-1.25); POTASSIUM 3.8 mmol/L (3.5-5.1); TOTAL PROTEIN 6.6 g/dL (6.5-8.1)
[2024-02-02] MEDS ORDERED: SODIUM CHLORIDE 0.9% 100 ML ONE (08:51)
[2024-02-02] MEDS ORDERED: IOPAMIDOL 610MG/1ML 300 MG/ML VIAL IV ONE (09:02)
[2024-02-02] MEDS ORDERED: BUPIVACAINE HCL 0.5% 10ML MPF VIAL INJ ONE (10:11)
[2024-02-02] MEDS ORDERED: PHENYLEPHRINE HCL 1% 10 MG/ML VIAL ONE (12:47)
[2024-02-02] MEDS ORDERED: PROPOFOL IV EMULSION 10 MG/ML 20 ML VIAL ONE (12:47)
[2024-02-02] MEDS ORDERED: EPHEDRINE SULFATE INJ 50 MG/ML VIAL ONE (12:47)
[2024-02-02] MEDS ORDERED: SEVOFLURANE INHAL SOLN 250 ML PEN BTL ONE (12:47)
[2024-02-02] MEDS ORDERED: ONDANSETRON HCL INJ 2MG/ML 2ML 2 MG/ML VIAL ONE (12:47)
[2024-02-02] MEDS ORDERED: LIDOCAINE HCL 2% LOCAL INJ 5 ML SDV VIAL INJ ONE (12:47)
[2024-02-02] MEDS ORDERED: ETOMIDATE 2 MG/ML 10 ML INJ IV ONE (12:47)
[2024-02-02] MEDS: DEXTROSE 5% 1,000 ML IV SCH (17:30)
== END 2024-02-02 23:00 | DRG 659 ==
LOC: ER 17:27 → ERHOLD 20:12 → ICU 20:42
PROVIDERS: ADMIT Internal Medicine; ATTEND Internal Medicine
PROC: 06HY33Z Insertion of Infusion Device into Lower Vein, Percutaneous Approach (ICD-10-PCS; principal; 2024-01-27)
PROC: B54CZZA Ultrasonography of Left Lower Extremity Veins, Guidance (ICD-10-PCS; 2024-01-27)
PROC: B548ZZA Ultrasonography of Superior Vena Cava, Guidance (ICD-10-PCS; 2024-01-27)
PROC: 3E043XZ Introduction of Vasopressor into Central Vein, Percutaneous Approach (ICD-10-PCS; 2024-01-27)
PROC: 3E04329 Introduction of Other Anti-infective into Central Vein, Percutaneous Approach (ICD-10-PCS; 2024-01-27)
PROC: 30243N1 Transfusion of Nonautologous Red Blood Cells into Central Vein, Percutaneous Approach (ICD-10-PCS; 2024-01-28)
PROC: 02HV33Z Insertion of Infusion Device into Superior Vena Cava, Percutaneous Approach (ICD-10-PCS; 2024-01-29)
PROC: 5A09357 Assistance with Respiratory Ventilation, Less than 24 Consecutive Hours, Continuous Positive Airway Pressure (ICD-10-PCS; 2024-01-30)
PROC: 0T788DZ Dilation of Bilateral Ureters with Intraluminal Device, Via Natural or Artificial Opening Endoscopic (ICD-10-PCS; 2024-02-02)
PROC: 0TF7XZZ Fragmentation in Left Ureter, External Approach (ICD-10-PCS; 2024-02-02)
PROC: 0TF6XZZ Fragmentation in Right Ureter, External Approach (ICD-10-PCS; 2024-02-02)
PROC: 0TP98DZ Removal of Intraluminal Device from Ureter, Via Natural or Artificial Opening Endoscopic (ICD-10-PCS; 2024-02-02)
PROC: 0TP98DZ Removal of Intraluminal Device from Ureter, Via Natural or Artificial Opening Endoscopic (ICD-10-PCS; 2024-02-02)
PROC: 0TCB8ZZ Extirpation of Matter from Bladder, Via Natural or Artificial Opening Endoscopic (ICD-10-PCS; 2024-02-02)
PROC: 0T9B30Z Drainage of Bladder with Drainage Device, Percutaneous Approach (ICD-10-PCS; 2024-02-02)
DX: T83.511A Infection and inflammatory reaction due to indwelling urethral catheter, initial encounter (principal); A41.52 Sepsis due to Pseudomonas; G82.50 Quadriplegia, unspecified; L89.894 Pressure ulcer of other site, stage 4; G93.41 Metabolic encephalopathy; R65.21 Severe sepsis with septic shock; N17.0 Acute kidney failure with tubular necrosis; B37.49 Other urogenital candidiasis; E87.1 Hypo-osmolality and hyponatremia; G95.9 Disease of spinal cord, unspecified; M86.68 Other chronic osteomyelitis, other site; B96.5 Pseudomonas (aeruginosa) (mallei) (pseudomallei) as the cause of diseases classified elsewhere; E11.42 Type 2 diabetes mellitus with diabetic polyneuropathy; E11.51 Type 2 diabetes mellitus with diabetic peripheral angiopathy without gangrene; D50.0 Iron deficiency anemia secondary to blood loss (chronic); G47.33 Obstructive sleep apnea (adult) (pediatric); D64.9 Anemia, unspecified; M10.9 Gout, unspecified; Z93.3 Colostomy status; B96.20 Unspecified Escherichia coli [E. coli] as the cause of diseases classified elsewhere; Y73.8 Miscellaneous gastroenterology and urology devices associated with adverse incidents, not elsewhere classified; I48.0 Paroxysmal atrial fibrillation; E11.69 Type 2 diabetes mellitus with other specified complication; M62.81 Muscle weakness (generalized); Y92.89 Other specified places as the place of occurrence of the external cause; Z74.01 Bed confinement status; Z90.49 Acquired absence of other specified parts of digestive tract; Z79.01 Long term (current) use of anticoagulants; Z79.899 Other long term (current) drug therapy; Z79.82 Long term (current) use of aspirin; Z87.440 Personal history of urinary (tract) infections; Z93.6 Other artificial openings of urinary tract status; Z20.822 Contact with and (suspected) exposure to COVID-19
CPT/HCPCS: 36415; 36569; 50590; 70450; 71045; 74176; 80053; 80307; 81001; 82140; 82550; 82607; 82728; 82948; 83540; 83605; 83690; 83735; 83880; 84443; 84466; 84484; 85025; 85610; 85730; 86850; 86870; 86880; 86900; 86905; 86920; 86922; 87040; 87086; 87186; 87400; 88300; 93005; 93306; 94660; 94799; 96411; 99001; 99252; 99284; C1758; C2617; J1650; J1940; J2001; J2185; J2248; J2310; J2371; J2405; J3475; J7030; J7050; J7070; P9016; U0002